=== PATIENT | female | born 1950 | race African-American/Black ===

== ENCOUNTER 2021-10-10 04:46 | Observation (INO) | payer OTHER ==
[2021-10-10 04:54] VITALS: BMI 22.1
[2021-10-10 06:17] LABS: BASO % 0.7 % (0-2.0); EOS % 2.8 % (0-4.5); HEMATOCRIT 38.4 % (32.4-45.2); LYMPH % 42.7 % (8-40); MCH 32.2 pg (25.7-33.7); MCHC 33.7 g/dl (32.0-36.0); MEAN CELL VOLUME 95.6 fl (80-96); MEAN PLT VOLUME 9.9 fl (7.5-11.1); MONO % 15.6 % (3.8-10.2); NEUT % 38.2 % (42.8-82.8); PLATELET COUNT 229 10^3/uL (134-434); RBC 4.02 M/mm3 (3.60-5.2); WHITE BLOOD COUNT 4.2 K/mm3 (4.0-10.0)
[2021-10-10 06:28] LABS: CHLORIDE 98 mmol/L (98-107); SODIUM 133 mmol/L (136-145)
[2021-10-10 06:30] LABS: CALCIUM 9.2 mg/dL (8.5-10.1)
[2021-10-10 06:31] LABS: ANION GAP 8 MMOL/L (8-16); BLOOD UREA NITROGEN 14.6 mg/dL (7-18); CO2 27 mmol/L (21-32); GLUCOSE,RANDOM 69 mg/dL (74-106)
[2021-10-10 06:34] LABS: CREATININE 0.7 mg/dL (0.55-1.3); SGOT/AST 21 U/L (15-37); SGPT/ALT 13 U/L (13-61)
[2021-10-10 06:35] LABS: BILIRUBIN,TOTAL 0.6 mg/dL (0.2-1); TOT PROT 6.9 g/dl (6.4-8.2)
[2021-10-10 06:37] LABS: ALK PHOS 113 U/L (45-117)
[2021-10-10] MEDS ORDERED: ENOXAPARIN NA (PORCINE) 40 MG/0.4 ML DISP.SYRIN SQ ONE (10:19)
[2021-10-10] MEDS ORDERED: LORazepam 0.5 MG TABLET ONE (10:19)
[2021-10-10 10:20] LABS: EPI CELLS 24 /uL (0-25.1); HYALINE CASTS 1 /uL (0-3.1); URINE APPEARANCE CLEAR; URINE BACTERIA 50 /uL (0-1359); URINE BILIRUBIN NEGATIVE (NEGATIVE); URINE COLOR YELLOW; URINE GLUCOSE (UA) NEGATIVE (NEGATIVE); URINE KETONE 2+ (NEGATIVE); URINE LEUK ESTERASE 2+ (NEGATIVE); URINE NITRITE NEGATIVE (NEGATIVE); URINE PROTEIN NEGATIVE (NEGATIVE); URINE RBC 7 /uL (0-23.9); URINE UROBILINOGEN 0.2 mg/dL (0.2-1.0); URINE WBC 11 /uL (0-25.8)
[2021-10-10] MEDS: LORazepam 0.5 MG TABLET PO PRN (10:24)
[2021-10-10] MEDS: ENOXAPARIN NA (PORCINE) 40 MG/0.4 ML DISP.SYRIN SQ SCH (10:24)
[2021-10-10] MEDS ORDERED: oxyCODONE HCL 5 MG TABLET PO ONE (12:17)
[2021-10-10] MEDS ORDERED: ONDANSETRON 4 MG/2 ML VIAL ONE (15:24)
[2021-10-10] MEDS: ONDANSETRON 4 MG/2 ML VIAL IVPUSH PRN (15:28)
[2021-10-10 17:45] LABS: MAGNESIUM 1.8 mg/dL (1.8-2.4)
[2021-10-10 17:48] LABS: PHOSPHOROUS 3.1 mg/dL (2.5-4.9)
[2021-10-10 18:42] LABS: CALCIUM 9.1 mg/dL (8.5-10.1)
[2021-10-10 18:44] LABS: BLOOD UREA NITROGEN 14.2 mg/dL (7-18)
[2021-10-10 18:46] LABS: CREATININE 0.7 mg/dL (0.55-1.3)
[2021-10-11] MEDS: ONDANSETRON 4 MG/2 ML VIAL IVPUSH PRN (00:05)
[2021-10-11] MEDS: LORazepam 0.5 MG TABLET PO PRN ×2 (02:40→13:33)
[2021-10-11] MEDS ORDERED: SODIUM CHLORIDE 1,000 ML IV SCH (08:30)
[2021-10-11 08:52] LABS: BASO % 0.5 % (0-2.0); EOS % 3.2 % (0-4.5); HEMATOCRIT 37.5 % (32.4-45.2); HEMOGLOBIN 12.8 GM/dL (10.7-15.3); LYMPH % 47.4 % (8-40); MCH 32.8 pg (25.7-33.7); MCHC 34.1 g/dl (32.0-36.0); MEAN CELL VOLUME 96.2 fl (80-96); MEAN PLT VOLUME 9.5 fl (7.5-11.1); NEUT % 36.9 % (42.8-82.8); PLATELET COUNT 226 10^3/uL (134-434); RBC 3.89 M/mm3 (3.60-5.2); RDW 12.9 % (11.6-15.6); WHITE BLOOD COUNT 3.6 K/mm3 (4.0-10.0)
[2021-10-11 09:20] LABS: ALBUMIN 3.8 g/dl (3.4-5.0); BLOOD UREA NITROGEN 13.8 mg/dL (7-18); CALCIUM 8.8 mg/dL (8.5-10.1)
[2021-10-11 09:23] LABS: CREATININE 0.8 mg/dL (0.55-1.3)
[2021-10-11 09:24] LABS: TOT PROT 6.6 g/dl (6.4-8.2)
[2021-10-11 09:25] LABS: BILIRUBIN,TOTAL 0.6 mg/dL (0.2-1)
[2021-10-11] MEDS: ENOXAPARIN NA (PORCINE) 40 MG/0.4 ML DISP.SYRIN SQ SCH (11:00)
[2021-10-11] MEDS: oxyCODONE HCL 5 MG TABLET PO PRN (11:10)
[2021-10-11 12:03] LABS: MAGNESIUM 1.9 mg/dL (1.8-2.4)
[2021-10-11 12:07] LABS: PHOSPHOROUS 3.1 mg/dL (2.5-4.9)
[2021-10-11] MEDS ORDERED: LORazepam 0.5 MG TABLET PO ONE (18:56)
[2021-10-12] MEDS: LORazepam 0.5 MG TABLET PO PRN (03:33)
[2021-10-12] MEDS: ONDANSETRON 4 MG/2 ML VIAL IVPUSH PRN (03:34)
[2021-10-12] MEDS: ENOXAPARIN NA (PORCINE) 40 MG/0.4 ML DISP.SYRIN SQ SCH (10:37)
[2021-10-12] MEDS: oxyCODONE HCL 5 MG TABLET PO PRN (10:52)
[2021-10-13] MEDS: LORazepam 0.5 MG TABLET PO PRN (03:59)
[2021-10-13] MEDS: ENOXAPARIN NA (PORCINE) 40 MG/0.4 ML DISP.SYRIN SQ SCH (10:14)
[2021-10-13] MEDS: oxyCODONE HCL 5 MG TABLET PO PRN (10:16)
[2021-10-13] MEDS ORDERED: LORazepam 0.5 MG TABLET PO PRN (23:08)
[2021-10-13] MEDS ORDERED: ONDANSETRON 4 MG/2 ML VIAL IVPUSH PRN (23:08)
[2021-10-14] MEDS: LORazepam 0.5 MG TABLET PO PRN ×2 (04:09→14:01)
[2021-10-14] MEDS: oxyCODONE HCL 5 MG TABLET PO PRN (06:07)
[2021-10-14] MEDS: ENOXAPARIN NA (PORCINE) 40 MG/0.4 ML DISP.SYRIN SQ SCH (10:37)
[2021-10-15] MEDS: oxyCODONE HCL 5 MG TABLET PO PRN ×2 (03:02→15:51)
[2021-10-15] MEDS: LORazepam 0.5 MG TABLET PO PRN (07:52)
[2021-10-15] MEDS: ENOXAPARIN NA (PORCINE) 40 MG/0.4 ML DISP.SYRIN SQ SCH (09:57)
[2021-10-16] MEDS: oxyCODONE HCL 5 MG TABLET PO PRN (04:14)
[2021-10-16] MEDS: ENOXAPARIN NA (PORCINE) 40 MG/0.4 ML DISP.SYRIN SQ SCH (09:31)
[2021-10-16] MEDS: LORazepam 0.5 MG TABLET PO PRN (09:31)
[2021-10-16 15:28] VITALS: BP 153/74; PULSE 88; TEMP 97.5
== END 2021-10-16 16:53 ==
LOC: JER 04:46 → JERBED 07:04 → J6WEST-2 19:08 → J4W 10-11 14:07 → J8W 10-13 23:04
PROVIDERS: ADMIT Internal Medicine; ATTEND Internal Medicine
PROC: 3E023GC Introduction of Other Therapeutic Substance into Muscle, Percutaneous Approach (ICD-10-PCS; principal; 2021-10-10)
PROC: 3E033GC Introduction of Other Therapeutic Substance into Peripheral Vein, Percutaneous Approach (ICD-10-PCS; 2021-10-10)
DX: U07.1 COVID-19 (principal); E22.2 Syndrome of inappropriate secretion of antidiuretic hormone; E87.3 Alkalosis; F41.9 Anxiety disorder, unspecified; G89.29 Other chronic pain; R56.9 Unspecified convulsions; E16.2 Hypoglycemia, unspecified; M54.9 Dorsalgia, unspecified; J93.9 Pneumothorax, unspecified; R00.2 Palpitations; Z88.8 Allergy status to other drugs, medicaments and biological substances; Z29.9 Encounter for prophylactic measures, unspecified
CPT/HCPCS: 36415; 70450-TC; 71045-TC-FY; 80048; 80053; 81003; 82436; 82550; 82570; 82962; 83735; 83930; 83935; 84100; 84300; 84484; 85025; 93005; 93010; 96372; 96374; 97116-GP; 97161-GP; 99285-25; C9803; G0378; U0003; U0005

== ENCOUNTER 2021-11-22 03:51 | Inpatient (IN) | payer OTHER ==
[2021-11-22] MEDS ORDERED: ONDANSETRON 4 MG/2 ML VIAL IVPUSH ONE ×2 (04:08→08:16)
[2021-11-22] MEDS ORDERED: morphine CARPU-JECT 4 MG/1 ML DISP.SYRIN IVPUSH ONE (04:08)
[2021-11-22] MEDS ORDERED: morphine SULFATE 4 MG/ML VIAL ONE (04:29)
[2021-11-22] MEDS ORDERED: ONDANSETRON 4 MG/2 ML VIAL ONE ×2 (04:29→08:21)
[2021-11-22] MEDS ORDERED: SODIUM CHLORIDE 0.9% 500 ML INFUS.BAG IV ONE (05:41)
[2021-11-22 05:50] LABS: CHLORIDE 104 mmol/L (98-107); SODIUM 138 mmol/L (136-145)
[2021-11-22 05:52] LABS: CALCIUM 9.6 mg/dL (8.5-10.1)
[2021-11-22 05:53] LABS: ALBUMIN 4.3 g/dl (3.4-5.0); ANION GAP 8 MMOL/L (8-16); BLOOD UREA NITROGEN 18.1 mg/dL (7-18); CO2 26 mmol/L (21-32); GLUCOSE,RANDOM 85 mg/dL (74-106); MAGNESIUM 1.6 mg/dL (1.8-2.4)
[2021-11-22 05:56] LABS: CREATININE 0.8 mg/dL (0.55-1.3); SGOT/AST 19 U/L (15-37); SGPT/ALT 15 U/L (13-61)
[2021-11-22 05:57] LABS: TOT PROT 7.3 g/dl (6.4-8.2)
[2021-11-22 05:58] LABS: BILIRUBIN,TOTAL 0.6 mg/dL (0.2-1)
[2021-11-22 05:59] LABS: ALK PHOS 108 U/L (45-117)
[2021-11-22 06:18] LABS: BASO % 0.6 % (0-2.0); EOS % 1.1 % (0-4.5); HEMATOCRIT 39.5 % (32.4-45.2); HEMOGLOBIN 13.5 GM/dL (10.7-15.3); LYMPH % 45.5 % (8-40); MCH 33.2 pg (25.7-33.7); MCHC 34.1 g/dl (32.0-36.0); MEAN CELL VOLUME 97.2 fl (80-96); MEAN PLT VOLUME 9.5 fl (7.5-11.1); MONO % 7.2 % (3.8-10.2); NEUT % 45.6 % (42.8-82.8); PLATELET COUNT 324 10^3/uL (134-434); RBC 4.06 M/mm3 (3.60-5.2); RDW 13.5 % (11.6-15.6); WHITE BLOOD COUNT 4.8 K/mm3 (4.0-10.0)
[2021-11-22 06:32] LABS: LIPASE 145 U/L (73-393)
[2021-11-22] MEDS ORDERED: FAMOTIDINE 20 MG/50 ML IVPB 20 MG/50 ML MG IVPB ONE ×2 (06:45→06:54)
[2021-11-22] MEDS ORDERED: morphine CARPU-JECT 2 MG/1 ML DISP.SYRIN IVPUSH ONE (06:45)
[2021-11-22 07:06] LABS: LACTIC ACID 2.5 mmol/L (0.4-2.0)
[2021-11-22 08:25] LABS: URINE APPEARANCE CLEAR; URINE BILIRUBIN NEGATIVE (NEGATIVE); URINE COLOR YELLOW; URINE GLUCOSE (UA) NEGATIVE (NEGATIVE); URINE KETONE TRACE (NEGATIVE); URINE PROTEIN NEGATIVE (NEGATIVE); URINE UROBILINOGEN 0.2 mg/dL (0.2-1.0)
[2021-11-22 08:26] LABS: URINE LEUK ESTERASE NEGATIVE (NEGATIVE); URINE NITRITE NEGATIVE (NEGATIVE)
[2021-11-22] MEDS ORDERED: SODIUM CHLORIDE 1,000 ML IV SCH (09:15)
[2021-11-22] MEDS: LORazepam 0.5 MG TABLET PO PRN (10:13)
[2021-11-22] MEDS ORDERED: LORazepam 0.5 MG TABLET ONE (10:14)
[2021-11-22 10:15] LABS: EPI CELLS 1+ /uL (0-25.1); URINE WBC 0-3 /uL (0-25.8)
[2021-11-22] MEDS ORDERED: MAGNESIUM SULF 50% (8.12 MEQ/2 ML-1 GM VIAL) IVPB ONE (12:02)
[2021-11-22] MEDS ORDERED: MAGNESIUM SULFATE IN WATER 2 GM/50 ML IVPB IVPB ONE (12:52)
[2021-11-22] MEDS: ACETAMINOPHEN 1000 MG/100 ML BAG IVPB PRN ×2 (14:41→22:13)
[2021-11-22] MEDS ORDERED: ACETAMINOPHEN INJECTION 100 ML IVPB ONE (14:45)
[2021-11-22] MEDS ORDERED: ENOXAPARIN NA (PORCINE) 40 MG/0.4 ML DISP.SYRIN SQ SCH ×2 (16:00→22:00)
[2021-11-22 16:32] LABS: INR 0.99 (0.83-1.09); PROTHROMBIN TIME (PATIENT) 11.4 SEC (9.7-13.0)
[2021-11-22 16:35] LABS: ACTIVATED PTT 27.1 SECONDS (25.2-36.5)
[2021-11-22 16:55] LABS: LACTIC ACID 2.7 mmol/L (0.4-2.0)
[2021-11-22] MEDS ORDERED: SODIUM PHOSPHATE - 30 MM in SODIUM CHLORIDE 500 ML IVPB ONE (17:30)
[2021-11-22] MEDS ORDERED: SODIUM CHLORIDE 1,000 ML IV STA (17:37)
[2021-11-22 20:49] VITALS: BMI 23.0
[2021-11-22] MEDS: APIXABAN 5 MG TABLET PO SCH (22:01)
[2021-11-22] MEDS: METOPROLOL TARTRATE 25 MG TABLET (FP) PO SCH (22:01)
[2021-11-23] MEDS: TRIMETHOBENZAMIDE HCL 200MG/2ML INJ IM PRN (02:11)
[2021-11-23] MEDS: LORazepam 0.5 MG TABLET PO PRN (02:50)
[2021-11-23 09:02] LABS: BASO % 0.7 % (0-2.0); EOS % 2.3 % (0-4.5); LYMPH % 47.6 % (8-40); MCH 33.6 pg (25.7-33.7); MCHC 34.2 g/dl (32.0-36.0); MEAN CELL VOLUME 98.3 fl (80-96); MONO % 9.3 % (3.8-10.2); NEUT % 40.1 % (42.8-82.8); PLATELET COUNT 240 10^3/uL (134-434); RBC 3.26 M/mm3 (3.60-5.2); RDW 13.1 % (11.6-15.6); WHITE BLOOD COUNT 3.6 K/mm3 (4.0-10.0)
[2021-11-23] MEDS: METOPROLOL TARTRATE 25 MG TABLET (FP) PO SCH ×3 (09:04→21:46)
[2021-11-23] MEDS: APIXABAN 5 MG TABLET PO SCH ×2 (09:04→21:43)
[2021-11-23 09:23] LABS: BLOOD UREA NITROGEN 8.6 mg/dL (7-18); MAGNESIUM 2.1 mg/dL (1.8-2.4)
[2021-11-23 09:24] LABS: CHOLESTEROL 144 mg/dL (50-200); TRIGLYCERIDES 57 mg/dL (0-150)
[2021-11-23 09:25] LABS: LDL CHOLESTEROL (ONLY SJRH) 65 mg/dL (5-100)
[2021-11-23 09:27] LABS: HDL CHOLESTEROL 68 mg/dL (40-60)
[2021-11-23 09:29] LABS: CREATININE 0.7 mg/dL (0.55-1.3)
[2021-11-23 09:37] LABS: ALBUMIN 3.1 g/dl (3.4-5.0); CALCIUM 7.6 mg/dL (8.5-10.1); TOT PROT 5.2 g/dl (6.4-8.2)
[2021-11-23] MEDS: SIMETHICONE 80 MG TAB.CHEW (FP) PO SCH ×3 (13:10→21:43)
[2021-11-23] MEDS ORDERED: LORazepam 0.5 MG TABLET PO SCH (22:00)
[2021-11-24] MEDS: LORazepam 0.5 MG TABLET PO PRN ×2 (01:17→13:32)
[2021-11-24] MEDS: ACETAMINOPHEN 1000 MG/100 ML BAG IVPB PRN ×3 (02:20→14:43)
[2021-11-24 09:06] LABS: BASO % 0.8 % (0-2.0); EOS % 3.1 % (0-4.5); HEMATOCRIT 32.5 % (32.4-45.2); HEMOGLOBIN 11.3 GM/dL (10.7-15.3); LYMPH % 47.2 % (8-40); MCHC 34.8 g/dl (32.0-36.0); MEAN CELL VOLUME 97.9 fl (80-96); MEAN PLT VOLUME 9.6 fl (7.5-11.1); MONO % 7.3 % (3.8-10.2); NEUT % 41.6 % (42.8-82.8); PLATELET COUNT 237 10^3/uL (134-434); RBC 3.32 M/mm3 (3.60-5.2); RDW 12.9 % (11.6-15.6); WHITE BLOOD COUNT 4.3 K/mm3 (4.0-10.0)
[2021-11-24 09:15] LABS: ALBUMIN 3.2 g/dl (3.4-5.0); BLOOD UREA NITROGEN 6.8 mg/dL (7-18); CALCIUM 7.8 mg/dL (8.5-10.1)
[2021-11-24] MEDS ORDERED: DEXTROSE 5%-0.45% SALINE 1,000 ML IV SCH ×2 (09:15→14:02)
[2021-11-24 09:18] LABS: CREATININE 0.7 mg/dL (0.55-1.3); PHOSPHOROUS 2.6 mg/dL (2.5-4.9)
[2021-11-24] MEDS: APIXABAN 5 MG TABLET PO SCH ×2 (09:18→21:19)
[2021-11-24] MEDS: METOPROLOL TARTRATE 25 MG TABLET (FP) PO SCH ×3 (09:18→21:19)
[2021-11-24] MEDS: SIMETHICONE 80 MG TAB.CHEW (FP) PO SCH ×4 (09:18→21:19)
[2021-11-24 09:19] LABS: TOT PROT 5.4 g/dl (6.4-8.2)
[2021-11-24 09:20] LABS: BILIRUBIN,TOTAL 0.8 mg/dL (0.2-1)
[2021-11-24] MEDS ORDERED: LORazepam 0.5 MG TABLET PO PRN ×2 (13:49→13:50)
[2021-11-24] MEDS: FAMOTIDINE 20 MG/50 ML IVPB 20 MG/50 ML MG IVPB SCH ×2 (14:07→21:19)
[2021-11-24] MEDS: POLYETHYLENE GLYCOL (HEALTHYLAX) 3350 17 GM PACKET PO SCH (21:21)
[2021-11-25] MEDS: LORazepam 0.5 MG TABLET PO PRN ×2 (01:39→13:49)
[2021-11-25] MEDS: TRIMETHOBENZAMIDE HCL 200MG/2ML INJ IM PRN (03:57)
[2021-11-25] MEDS ORDERED: ACETAMINOPHEN 1000 MG/100 ML BAG IVPB ONE (04:59)
[2021-11-25 09:02] LABS: BASO % 0.3 % (0-2.0); EOS % 1.2 % (0-4.5); HEMATOCRIT 35.3 % (32.4-45.2); HEMOGLOBIN 12.3 GM/dL (10.7-15.3); LYMPH % 21.9 % (8-40); MCH 33.9 pg (25.7-33.7); MCHC 34.8 g/dl (32.0-36.0); MEAN CELL VOLUME 97.2 fl (80-96); MEAN PLT VOLUME 9.5 fl (7.5-11.1); MONO % 6.1 % (3.8-10.2); NEUT % 70.5 % (42.8-82.8); PLATELET COUNT 244 10^3/uL (134-434); RBC 3.64 M/mm3 (3.60-5.2); RDW 12.7 % (11.6-15.6); WHITE BLOOD COUNT 8.1 K/mm3 (4.0-10.0)
[2021-11-25 09:29] LABS: CHLORIDE 98 mmol/L (98-107); SODIUM 130 mmol/L (136-145)
[2021-11-25 09:31] LABS: CALCIUM 8.2 mg/dL (8.5-10.1); GLUCOSE,RANDOM 81 mg/dL (74-106)
[2021-11-25 09:32] LABS: ALBUMIN 3.6 g/dl (3.4-5.0); ANION GAP 11 MMOL/L (8-16); BLOOD UREA NITROGEN 7.4 mg/dL (7-18); CO2 21 mmol/L (21-32); MAGNESIUM 1.8 mg/dL (1.8-2.4)
[2021-11-25 09:35] LABS: CREATININE 0.8 mg/dL (0.55-1.3); LIPASE 38 U/L (73-393); PHOSPHOROUS 2.2 mg/dL (2.5-4.9); SGOT/AST 32 U/L (15-37); SGPT/ALT 15 U/L (13-61)
[2021-11-25 09:36] LABS: AMYLASE 26 U/L (25-115); LDH 162 U/L (84-246); TOT PROT 5.9 g/dl (6.4-8.2)
[2021-11-25 09:38] LABS: ALK PHOS 75 U/L (45-117)
[2021-11-25] MEDS: FAMOTIDINE 20 MG/50 ML IVPB 20 MG/50 ML MG IVPB SCH ×2 (10:48→21:36)
[2021-11-25] MEDS: SIMETHICONE 80 MG TAB.CHEW (FP) PO SCH (10:48)
[2021-11-25] MEDS: APIXABAN 5 MG TABLET PO SCH ×2 (10:49→21:36)
[2021-11-25] MEDS: POLYETHYLENE GLYCOL (HEALTHYLAX) 3350 17 GM PACKET PO SCH ×2 (10:49→21:37)
[2021-11-25] MEDS: METOPROLOL TARTRATE 25 MG TABLET (FP) PO SCH ×3 (11:13→21:38)
[2021-11-25] MEDS ORDERED: NAPH,MB-DB/K PH,MBDB POWDER PACKET PO ONE (12:09)
[2021-11-25] MEDS ORDERED: METOCLOPRAMIDE HCL INJECTION 10 MG/2 ML VIAL IVPUSH ONE (15:18)
[2021-11-26] MEDS: LORazepam 0.5 MG TABLET PO PRN ×2 (04:15→14:56)
[2021-11-26] MEDS: APIXABAN 5 MG TABLET PO SCH ×2 (09:26→21:29)
[2021-11-26] MEDS: METOPROLOL TARTRATE 25 MG TABLET (FP) PO SCH ×2 (09:26→21:29)
[2021-11-26] MEDS: POLYETHYLENE GLYCOL (HEALTHYLAX) 3350 17 GM PACKET PO SCH ×2 (09:26→21:29)
[2021-11-26] MEDS: FAMOTIDINE 20 MG/50 ML IVPB 20 MG/50 ML MG IVPB SCH ×2 (09:26→21:29)
[2021-11-26 10:12] LABS: CALCIUM 8.7 mg/dL (8.5-10.1)
[2021-11-26 10:16] LABS: CREATININE 0.7 mg/dL (0.55-1.3); PHOSPHOROUS 2.3 mg/dL (2.5-4.9)
[2021-11-26] MEDS ORDERED: SODIUM PHOSPHATE - 30 MM in SODIUM CHLORIDE 500 ML IVPB ONE (10:57)
[2021-11-26 12:51] LABS: BLOOD UREA NITROGEN 8.7 mg/dL (7-18); CALCIUM 8.5 mg/dL (8.5-10.1)
[2021-11-26 12:52] LABS: ALBUMIN 3.7 g/dl (3.4-5.0)
[2021-11-26 12:55] LABS: CREATININE 0.7 mg/dL (0.55-1.3)
[2021-11-26 12:56] LABS: BILIRUBIN,TOTAL 0.8 mg/dL (0.2-1); TOT PROT 6.4 g/dl (6.4-8.2)
[2021-11-27] MEDS: LORazepam 0.5 MG TABLET PO PRN ×2 (02:07→09:58)
[2021-11-27] MEDS ORDERED: NAPH,MB-DB/K PH,MBDB POWDER PACKET PO ONE (08:18)
[2021-11-27 09:14] LABS: CALCIUM 8.3 mg/dL (8.5-10.1)
[2021-11-27 09:15] LABS: ALBUMIN 3.5 g/dl (3.4-5.0); BLOOD UREA NITROGEN 7.1 mg/dL (7-18)
[2021-11-27 09:16] LABS: CREATININE 0.6 mg/dL (0.55-1.3)
[2021-11-27 09:18] LABS: PHOSPHOROUS 2.8 mg/dL (2.5-4.9)
[2021-11-27 09:20] LABS: BILIRUBIN,TOTAL 0.8 mg/dL (0.2-1)
[2021-11-27 09:28] LABS: BASO % 0.6 % (0-2.0); EOS % 2.4 % (0-4.5); HEMOGLOBIN 12.3 GM/dL (10.7-15.3); LYMPH % 36.6 % (8-40); MCH 34.6 pg (25.7-33.7); MCHC 36.4 g/dl (32.0-36.0); MEAN CELL VOLUME 95.2 fl (80-96); MEAN PLT VOLUME 9.1 fl (7.5-11.1); MONO % 8.9 % (3.8-10.2); NEUT % 51.5 % (42.8-82.8); PLATELET COUNT 233 10^3/uL (134-434); RBC 3.57 M/mm3 (3.60-5.2); RDW 13.1 % (11.6-15.6); WHITE BLOOD COUNT 5.5 K/mm3 (4.0-10.0)
[2021-11-27] MEDS: FAMOTIDINE 20 MG/50 ML IVPB 20 MG/50 ML MG IVPB SCH (09:52)
[2021-11-27] MEDS: POLYETHYLENE GLYCOL (HEALTHYLAX) 3350 17 GM PACKET PO SCH (09:52)
[2021-11-27] MEDS: APIXABAN 5 MG TABLET PO SCH (09:52)
[2021-11-27] MEDS: METOPROLOL TARTRATE 25 MG TABLET (FP) PO SCH (09:52)
[2021-11-27 10:17] VITALS: BP 144/68; PULSE 60; TEMP 98.1
== END 2021-11-27 14:09 | disposition home or self-care (01) | DRG 389 ==
LOC: JER 03:51 → UNDOADMOB 08:12 → JERBED 08:12 → INTOOBSV 08:12 → JERBED 08:12 → UNDOADMOB 08:57 → JERBED 14:41 → INTOOBSV 14:50 → OBSVTOIN 14:50 → J6S 20:01 → OBSVTOIN 11-24 14:41
PROVIDERS: ADMIT Internal Medicine
DX: K56.7 Ileus, unspecified (principal); N39.0 Urinary tract infection, site not specified; E22.2 Syndrome of inappropriate secretion of antidiuretic hormone; E87.2 Acidosis; K57.30 Diverticulosis of large intestine without perforation or abscess without bleeding; I48.0 Paroxysmal atrial fibrillation; I51.7 Cardiomegaly; F41.9 Anxiety disorder, unspecified; K59.00 Constipation, unspecified; E83.42 Hypomagnesemia
CPT/HCPCS: 36415; 71045-TC-FY; 74174-TC; 76705-TC; 78226-TC; 80048; 80053; 80061; 81003; 82150; 83036; 83605; 83615; 83690; 83735; 84100; 84439; 84443; 84484; 85025; 85610; 85651; 85730; 86140; 86850; 86900; 86901; 87086; 87186; 93005; 93010; 93306-TC; 99285-25; A9537; C9803; G0378; U0003; U0005

== ENCOUNTER 2021-11-29 02:50 | Observation (INO) | payer OTHER ==
[2021-11-29 03:20] VITALS: BMI 20.7
[2021-11-29] MEDS ORDERED: SODIUM CHLORIDE 0.9% 500 ML INFUS.BAG IV ONE (03:55)
[2021-11-29] MEDS ORDERED: FAMOTIDINE 20 MG/50 ML IVPB 20 MG/50 ML MG IVPB ONE ×2 (03:55→04:17)
[2021-11-29] MEDS ORDERED: MAG HYDROX/AL HYDROX/SIMETH -MYLANTA- ORAL SUSPENSION PO ONE (03:55)
[2021-11-29] MEDS ORDERED: ONDANSETRON *ODT* 4 MG TABLET SL ONE (03:55)
[2021-11-29] MEDS ORDERED: MAG HYDROX/AL HYDROX/SIMETH 30 ML UNIT-DOSE CUP ONE (04:17)
[2021-11-29] MEDS ORDERED: ONDANSETRON *ODT* 4 MG TABLET ONE (04:17)
[2021-11-29 04:23] LABS: BASO % 0.6 % (0-2.0); EOS % 2.9 % (0-4.5); HEMATOCRIT 35.5 % (32.4-45.2); HEMOGLOBIN 12.8 GM/dL (10.7-15.3); LYMPH % 37.5 % (8-40); MCH 33.9 pg (25.7-33.7); MCHC 35.9 g/dl (32.0-36.0); MEAN CELL VOLUME 94.2 fl (80-96); MEAN PLT VOLUME 8.7 fl (7.5-11.1); MONO % 11.8 % (3.8-10.2); NEUT % 47.2 % (42.8-82.8); PLATELET COUNT 254 10^3/uL (134-434); RBC 3.77 M/mm3 (3.60-5.2); WHITE BLOOD COUNT 4.7 K/mm3 (4.0-10.0)
[2021-11-29 04:43] LABS: CALCIUM 8.7 mg/dL (8.5-10.1); MAGNESIUM 1.9 mg/dL (1.8-2.4)
[2021-11-29 04:46] LABS: CREATININE 0.7 mg/dL (0.55-1.3); PHOSPHOROUS 2.5 mg/dL (2.5-4.9)
[2021-11-29 04:48] LABS: BILIRUBIN,TOTAL 0.7 mg/dL (0.2-1); TOT PROT 6.8 g/dl (6.4-8.2)
[2021-11-29] MEDS ORDERED: LORazepam 2 MG TABLET PO ONE ×2 (06:47→06:54)
[2021-11-29] MEDS ORDERED: LORazepam 0.5 MG TABLET ONE (06:57)
[2021-11-29] MEDS ORDERED: CEPHALEXIN MONOHYDRATE 500 MG CAPSULE (UD) PO SCH (10:00)
[2021-11-29 10:54] LABS: BLOOD UREA NITROGEN 9.2 mg/dL (7-18); CALCIUM 8.3 mg/dL (8.5-10.1)
[2021-11-29 10:57] LABS: CREATININE 0.6 mg/dL (0.55-1.3)
[2021-11-29] MEDS ORDERED: METOPROLOL TARTRATE 25 MG TABLET (FP) ONE (11:31)
[2021-11-29] MEDS ORDERED: APIXABAN 5 MG TABLET ONE (11:31)
[2021-11-29] MEDS ORDERED: CEPHALEXIN MONOHYDRATE 500 MG CAPSULE (UD) ONE (11:32)
[2021-11-29 11:36] LABS: EPI CELLS 12 /uL (0-25.1); HYALINE CASTS 1 /uL (0-3.1); URINE APPEARANCE CLEAR; URINE BACTERIA 648 /uL (0-1359); URINE BILIRUBIN NEGATIVE (NEGATIVE); URINE COLOR YELLOW; URINE GLUCOSE (UA) NEGATIVE (NEGATIVE); URINE KETONE TRACE (NEGATIVE); URINE LEUK ESTERASE 1+ (NEGATIVE); URINE NITRITE NEGATIVE (NEGATIVE); URINE PROTEIN NEGATIVE (NEGATIVE); URINE RBC 7 /uL (0-23.9); URINE UROBILINOGEN 0.2 mg/dL (0.2-1.0); URINE WBC 57 /uL (0-25.8)
[2021-11-29] MEDS: APIXABAN 5 MG TABLET PO SCH ×2 (11:36→22:37)
[2021-11-29] MEDS: METOPROLOL TARTRATE 25 MG TABLET (FP) PO SCH ×2 (11:36→22:37)
[2021-11-29] MEDS: CEPHALEXIN MONOHYDRATE 500 MG CAPSULE (UD) PO SCH ×2 (11:37→22:37)
[2021-11-29 11:41] LABS: URINE CRYSTALS NON SEEN /hpf
[2021-11-29] MEDS ORDERED: SODIUM CHLORIDE 1 GM TABLET PO SCH (13:30)
[2021-11-29] MEDS: SODIUM CHLORIDE 1 GM TABLET PO SCH ×3 (15:31→22:37)
[2021-11-29 17:28] LABS: CALCIUM 8.2 mg/dL (8.5-10.1)
[2021-11-29 17:29] LABS: BLOOD UREA NITROGEN 9.5 mg/dL (7-18)
[2021-11-29 17:32] LABS: CREATININE 0.6 mg/dL (0.55-1.3)
[2021-11-29 21:38] LABS: CALCIUM 8.2 mg/dL (8.5-10.1)
[2021-11-29 21:39] LABS: BLOOD UREA NITROGEN 9.5 mg/dL (7-18)
[2021-11-29 21:42] LABS: CREATININE 0.8 mg/dL (0.55-1.3)
[2021-11-30] MEDS: LORazepam 0.5 MG TABLET PO PRN (02:49)
[2021-11-30] MEDS: SODIUM CHLORIDE 1 GM TABLET PO SCH ×3 (06:20→21:43)
[2021-11-30 07:30] LABS: CALCIUM 8.5 mg/dL (8.5-10.1)
[2021-11-30 07:31] LABS: ALBUMIN 3.3 g/dl (3.4-5.0); BLOOD UREA NITROGEN 7.2 mg/dL (7-18); MAGNESIUM 1.9 mg/dL (1.8-2.4)
[2021-11-30 07:33] LABS: HEMATOCRIT 32.5 % (32.4-45.2); HEMOGLOBIN 11.9 GM/dL (10.7-15.3); MCH 34.5 pg (25.7-33.7); MCHC 36.6 g/dl (32.0-36.0); MEAN CELL VOLUME 94.3 fl (80-96); MEAN PLT VOLUME 9.3 fl (7.5-11.1); PLATELET COUNT 215 10^3/uL (134-434); RBC 3.45 M/mm3 (3.60-5.2); RDW 12.9 % (11.6-15.6); WHITE BLOOD COUNT 3.9 K/mm3 (4.0-10.0)
[2021-11-30 07:34] LABS: CREATININE 0.6 mg/dL (0.55-1.3); PHOSPHOROUS 2.5 mg/dL (2.5-4.9)
[2021-11-30 07:35] LABS: BILIRUBIN,TOTAL 0.8 mg/dL (0.2-1)
[2021-11-30 07:36] LABS: TOT PROT 5.6 g/dl (6.4-8.2)
[2021-11-30] MEDS: CEPHALEXIN MONOHYDRATE 500 MG CAPSULE (UD) PO SCH ×2 (09:01→21:43)
[2021-11-30] MEDS: METOPROLOL TARTRATE 25 MG TABLET (FP) PO SCH ×3 (09:01→21:43)
[2021-11-30] MEDS: APIXABAN 5 MG TABLET PO SCH ×2 (09:01→21:43)
[2021-12-01] MEDS: LORazepam 0.5 MG TABLET PO PRN ×2 (04:35→17:04)
[2021-12-01] MEDS: SODIUM CHLORIDE 1 GM TABLET PO SCH ×3 (05:32→21:45)
[2021-12-01 08:51] LABS: BASO % 0.9 % (0-2.0); HEMATOCRIT 32.5 % (32.4-45.2); HEMOGLOBIN 11.7 GM/dL (10.7-15.3); LYMPH % 47.5 % (8-40); MCH 34.3 pg (25.7-33.7); MCHC 35.9 g/dl (32.0-36.0); MEAN CELL VOLUME 95.3 fl (80-96); MEAN PLT VOLUME 9.2 fl (7.5-11.1); MONO % 12.4 % (3.8-10.2); NEUT % 37.2 % (42.8-82.8); PLATELET COUNT 217 10^3/uL (134-434); RBC 3.41 M/mm3 (3.60-5.2); WHITE BLOOD COUNT 3.8 K/mm3 (4.0-10.0)
[2021-12-01 09:21] LABS: CALCIUM 8.5 mg/dL (8.5-10.1)
[2021-12-01 09:22] LABS: ALBUMIN 3.2 g/dl (3.4-5.0); BLOOD UREA NITROGEN 7.8 mg/dL (7-18)
[2021-12-01 09:25] LABS: CREATININE 0.7 mg/dL (0.55-1.3)
[2021-12-01 09:27] LABS: BILIRUBIN,TOTAL 0.4 mg/dL (0.2-1); TOT PROT 5.6 g/dl (6.4-8.2)
[2021-12-01] MEDS: APIXABAN 5 MG TABLET PO SCH ×2 (10:36→21:44)
[2021-12-01] MEDS: METOPROLOL TARTRATE 25 MG TABLET (FP) PO SCH ×2 (10:36→21:45)
[2021-12-01] MEDS: CEPHALEXIN MONOHYDRATE 500 MG CAPSULE (UD) PO SCH ×2 (10:36→21:44)
[2021-12-02] MEDS: LORazepam 0.5 MG TABLET PO PRN (05:10)
[2021-12-02] MEDS: SODIUM CHLORIDE 1 GM TABLET PO SCH ×3 (05:10→21:26)
[2021-12-02] MEDS: CEPHALEXIN MONOHYDRATE 500 MG CAPSULE (UD) PO SCH ×2 (09:35→21:26)
[2021-12-02] MEDS: APIXABAN 5 MG TABLET PO SCH ×2 (09:35→21:26)
[2021-12-02] MEDS: METOPROLOL TARTRATE 25 MG TABLET (FP) PO SCH ×2 (09:35→21:26)
[2021-12-02] MEDS ORDERED: traMADol HCL 50 MG TABLET PO ONE (12:34)
[2021-12-02] MEDS ORDERED: LORazepam 2 MG TABLET PO ONE (14:32)
[2021-12-02] MEDS ORDERED: LORazepam 0.5 MG TABLET PO PRN (14:41)
[2021-12-02 16:23] LABS: CALCIUM 8.6 mg/dL (8.5-10.1)
[2021-12-02 16:27] LABS: CREATININE 0.7 mg/dL (0.55-1.3)
[2021-12-03] MEDS: SODIUM CHLORIDE 1 GM TABLET PO SCH ×2 (05:58→14:33)
[2021-12-03] MEDS: METOPROLOL TARTRATE 25 MG TABLET (FP) PO SCH ×2 (09:09→09:12)
[2021-12-03] MEDS: CEPHALEXIN MONOHYDRATE 500 MG CAPSULE (UD) PO SCH (09:09)
[2021-12-03] MEDS: APIXABAN 5 MG TABLET PO SCH (09:10)
[2021-12-03 14:18] VITALS: BP 129/59; PULSE 61; TEMP 97.8
[2021-12-03] MEDS ORDERED: LORazepam 0.5 MG TABLET PO ONE (14:56)
== END 2021-12-03 16:47 | disposition short-term general hospital (02) ==
LOC: JER 02:50 → UNDOADMOB 05:53 → INTOOBSV 05:53 → JERBED 05:53 → J7W 12:32
PROVIDERS: ADMIT Internal Medicine
PROC: 3E033GC Introduction of Other Therapeutic Substance into Peripheral Vein, Percutaneous Approach (ICD-10-PCS; principal; 2021-11-29)
PROC: 3E0337Z Introduction of Electrolytic and Water Balance Substance into Peripheral Vein, Percutaneous Approach (ICD-10-PCS; 2021-11-29)
DX: E22.2 Syndrome of inappropriate secretion of antidiuretic hormone (principal); I48.0 Paroxysmal atrial fibrillation; R19.7 Diarrhea, unspecified; N39.0 Urinary tract infection, site not specified
CPT/HCPCS: 36415; 80048; 80053; 81003; 82436; 82533; 83735; 83930; 83935; 84100; 84133; 84300; 84439; 84443; 85025; 85027; 87045; 87046; 87086; 87177; 87186; 87209; 96365; 99285-25; C9803; G0378; Q0162; U0003; U0005

== ENCOUNTER 2022-01-16 03:57 | Observation (INO) | payer OTHER ==
[2022-01-16] MEDS ORDERED: SODIUM CHLORIDE 0.9% 500 ML INFUS.BAG IV ONE ×2 (04:06→04:15)
[2022-01-16] MEDS ORDERED: FAMOTIDINE 20 MG/50 ML IVPB 20 MG/50 ML MG IVPB ONE (04:06)
[2022-01-16] MEDS ORDERED: ONDANSETRON 4 MG/2 ML VIAL IVPUSH ONE (04:06)
[2022-01-16] MEDS ORDERED: ACETAMINOPHEN 1000 MG/100 ML BAG IVPB ONE (04:14)
[2022-01-16] MEDS ORDERED: ACETAMINOPHEN INJECTION 100 ML IVPB ONE (04:18)
[2022-01-16] MEDS ORDERED: ONDANSETRON 4 MG/2 ML VIAL ONE (04:18)
[2022-01-16] MEDS ORDERED: FAMOTIDINE 10 MG/ML VIAL IVPB ONE (04:19)
[2022-01-16 04:58] LABS: BASO % 1.3 % (0-2.0); EOS % 3.1 % (0-4.5); HEMATOCRIT 36.9 % (32.4-45.2); LYMPH % 37.9 % (8-40); MCH 34.5 pg (25.7-33.7); MCHC 35.1 g/dl (32.0-36.0); MEAN CELL VOLUME 98.1 fl (80-96); MEAN PLT VOLUME 8.6 fl (7.5-11.1); MONO % 8.9 % (3.8-10.2); NEUT % 48.8 % (42.8-82.8); PLATELET COUNT 249 10^3/uL (134-434); RBC 3.77 M/mm3 (3.60-5.2); RDW 13.1 % (11.6-15.6); WHITE BLOOD COUNT 5.1 K/mm3 (4.0-10.0)
[2022-01-16 05:04] LABS: INR 1.01 (0.83-1.09); PROTHROMBIN TIME (PATIENT) 11.6 SEC (9.7-13.0)
[2022-01-16 05:06] LABS: ACTIVATED PTT 29.8 SECONDS (25.2-36.5)
[2022-01-16 05:20] LABS: ALBUMIN 3.8 g/dl (3.4-5.0); CALCIUM 8.7 mg/dL (8.5-10.1)
[2022-01-16 05:21] LABS: BLOOD UREA NITROGEN 19.6 mg/dL (7-18); MAGNESIUM 1.8 mg/dL (1.8-2.4)
[2022-01-16 05:23] LABS: CREATININE 0.8 mg/dL (0.55-1.3)
[2022-01-16 05:25] LABS: BILIRUBIN,TOTAL 0.6 mg/dL (0.2-1); TOT PROT 6.9 g/dl (6.4-8.2)
[2022-01-16] MEDS ORDERED: morphine CARPU-JECT 2 MG/1 ML DISP.SYRIN IVPUSH ONE (05:56)
[2022-01-16 07:54] LABS: EPI CELLS 8 /uL (0-25.1); HYALINE CASTS 0 /uL (0-3.1); PH,URINE 7.5 (5.0-8.0); URINE APPEARANCE CLEAR; URINE BACTERIA 41 /uL (0-1359); URINE BILIRUBIN NEGATIVE (NEGATIVE); URINE COLOR YELLOW; URINE GLUCOSE (UA) NEGATIVE (NEGATIVE); URINE KETONE NEGATIVE (NEGATIVE); URINE LEUK ESTERASE NEGATIVE (NEGATIVE); URINE NITRITE NEGATIVE (NEGATIVE); URINE PROTEIN NEGATIVE (NEGATIVE); URINE RBC 40 /uL (0-23.9); URINE UROBILINOGEN 0.2 mg/dL (0.2-1.0); URINE WBC 6 /uL (0-25.8)
[2022-01-16] MEDS ORDERED: LORazepam 2 MG TABLET PO ONE (09:24)
[2022-01-16] MEDS ORDERED: LORazepam 0.5 MG TABLET ONE (09:29)
[2022-01-16] MEDS ORDERED: CIPROFLOXACIN 400 MG/D5W 400 MG/200 ML IVPB IVPB ONE (10:05)
[2022-01-16] MEDS ORDERED: ACETAMINOPHEN 1000 MG/100 ML BAG IVPB PRN (11:30)
[2022-01-16] MEDS ORDERED: morphine SULFATE 4 MG/ML VIAL IVPUSH PRN (11:30)
[2022-01-16] MEDS: SODIUM CHLORIDE 1,000 ML IV SCH (12:30)
[2022-01-16] MEDS ORDERED: CEFTRIAXONE 1 GM/50 ML BAG ONE (15:06)
[2022-01-16] MEDS: SODIUM CHLORIDE 1 GM TABLET PO SCH (15:19)
[2022-01-16] MEDS: CEFTRIAXONE 1 GM in DEXTROSE 5%-WATER - 50 ML IVPB SCH (15:19)
[2022-01-16 20:44] VITALS: BMI 21.7
[2022-01-17] MEDS: SODIUM CHLORIDE 1 GM TABLET PO SCH ×4 (00:07→21:51)
[2022-01-17] MEDS: ONDANSETRON 4 MG/2 ML VIAL IVPUSH PRN ×2 (03:57→09:39)
[2022-01-17 08:58] LABS: HEMOGLOBIN 11.8 GM/dL (10.7-15.3); MCH 34.6 pg (25.7-33.7); MCHC 34.7 g/dl (32.0-36.0); MEAN CELL VOLUME 99.8 fl (80-96); PLATELET COUNT 225 10^3/uL (134-434); RBC 3.41 M/mm3 (3.60-5.2); RDW 13.1 % (11.6-15.6); WHITE BLOOD COUNT 4.2 K/mm3 (4.0-10.0)
[2022-01-17] MEDS ORDERED: cefTRIAXone SODIUM 1 GM VIAL ONE (09:27)
[2022-01-17] MEDS ORDERED: DEXTROSE 5%-WATER - 50 ML IVPB ONE (09:27)
[2022-01-17 09:32] LABS: BLOOD UREA NITROGEN 8.9 mg/dL (7-18)
[2022-01-17 09:33] LABS: ALBUMIN 3.4 g/dl (3.4-5.0); CALCIUM 8.3 mg/dL (8.5-10.1)
[2022-01-17 09:35] LABS: CREATININE 0.7 mg/dL (0.55-1.3)
[2022-01-17 09:37] LABS: TOT PROT 5.9 g/dl (6.4-8.2)
[2022-01-17] MEDS: CEFTRIAXONE 1 GM in DEXTROSE 5%-WATER - 50 ML IVPB SCH (09:38)
[2022-01-17] MEDS: ENOXAPARIN NA (PORCINE) 40 MG/0.4 ML DISP.SYRIN SQ SCH (09:39)
[2022-01-17] MEDS ORDERED: CEFTRIAXONE 1 GM in DEXTROSE 5%-WATER - 50 ML IVPB SCH (10:00)
[2022-01-17] MEDS ORDERED: ACETAMINOPHEN 650 MG/20.3 ML ORAL SOLUTION (CUPS) PO PRN (10:45)
[2022-01-17] MEDS: SODIUM CHLORIDE 1,000 ML IV SCH (14:47)
[2022-01-17] MEDS: LORazepam 0.5 MG TABLET PO PRN (21:51)
[2022-01-18] MEDS: SODIUM CHLORIDE 1 GM TABLET PO SCH ×3 (06:10→21:35)
[2022-01-18] MEDS: ONDANSETRON 4 MG/2 ML VIAL IVPUSH PRN (06:10)
[2022-01-18] MEDS: ENOXAPARIN NA (PORCINE) 40 MG/0.4 ML DISP.SYRIN SQ SCH (10:30)
[2022-01-18] MEDS: LORazepam 0.5 MG TABLET PO PRN (10:30)
[2022-01-18] MEDS: AMOX TR/POT CLAV 875MG/125MG TABLETS (FP) PO SCH ×3 (10:30→17:32)
[2022-01-19] MEDS: SODIUM CHLORIDE 1 GM TABLET PO SCH ×3 (06:07→21:23)
[2022-01-19] MEDS: ENOXAPARIN NA (PORCINE) 40 MG/0.4 ML DISP.SYRIN SQ SCH (09:03)
[2022-01-19] MEDS: AMOX TR/POT CLAV 875MG/125MG TABLETS (FP) PO SCH ×3 (09:04→17:44)
[2022-01-19] MEDS: LORazepam 0.5 MG TABLET PO PRN ×2 (09:08→21:23)
[2022-01-20] MEDS: SODIUM CHLORIDE 1 GM TABLET PO SCH ×2 (05:57→14:23)
[2022-01-20 06:53] VITALS: BP 128/72; PULSE 58; TEMP 97.8
[2022-01-20 09:54] LABS: BASO % 0.6 % (0-2.0); EOS % 6.4 % (0-4.5); HEMATOCRIT 36.3 % (32.4-45.2); HEMOGLOBIN 12.3 GM/dL (10.7-15.3); LYMPH % 37.4 % (8-40); MCH 33.9 pg (25.7-33.7); MCHC 33.9 g/dl (32.0-36.0); MEAN PLT VOLUME 9.6 fl (7.5-11.1); NEUT % 47.6 % (42.8-82.8); PLATELET COUNT 210 10^3/uL (134-434); RBC 3.63 M/mm3 (3.60-5.2); RDW 12.9 % (11.6-15.6); WHITE BLOOD COUNT 5.2 K/mm3 (4.0-10.0)
[2022-01-20] MEDS: ENOXAPARIN NA (PORCINE) 40 MG/0.4 ML DISP.SYRIN SQ SCH (11:26)
[2022-01-20] MEDS: AMOX TR/POT CLAV 875MG/125MG TABLETS (FP) PO SCH ×2 (11:26→14:22)
[2022-01-20] MEDS: LORazepam 0.5 MG TABLET PO PRN (11:35)
[2022-01-20 12:37] LABS: BLOOD UREA NITROGEN 11.4 mg/dL (7-18)
[2022-01-20 12:41] LABS: CREATININE 0.8 mg/dL (0.55-1.3)
== END 2022-01-20 15:24 | disposition home or self-care (01) ==
LOC: JER 03:57 → INTOOBSV 10:39 → UNDOADMOB 10:39 → JERBED 10:39 → J8W 19:10
PROVIDERS: ADMIT Internal Medicine; ATTEND Internal Medicine
PROC: 3E03329 Introduction of Other Anti-infective into Peripheral Vein, Percutaneous Approach (ICD-10-PCS; principal; 2022-01-16)
PROC: 3E033NZ Introduction of Analgesics, Hypnotics, Sedatives into Peripheral Vein, Percutaneous Approach (ICD-10-PCS; 2022-01-16)
PROC: 3E023GC Introduction of Other Therapeutic Substance into Muscle, Percutaneous Approach (ICD-10-PCS; 2022-01-16)
PROC: 3E0337Z Introduction of Electrolytic and Water Balance Substance into Peripheral Vein, Percutaneous Approach (ICD-10-PCS; 2022-01-16)
DX: K57.92 Diverticulitis of intestine, part unspecified, without perforation or abscess without bleeding (principal); I48.0 Paroxysmal atrial fibrillation; E22.2 Syndrome of inappropriate secretion of antidiuretic hormone; F41.9 Anxiety disorder, unspecified; Z29.8 Encounter for other specified prophylactic measures; Z88.8 Allergy status to other drugs, medicaments and biological substances
CPT/HCPCS: 36415; 71045-TC-FY; 74177-TC; 80048; 80053; 81003; 83605; 83690; 83735; 84484; 85025; 85027; 85610; 85730; 87086; 93005; 93010; 99285-25; C9803-CS; G0378; U0003; U0005

== ENCOUNTER 2022-02-09 10:58 | Emergency (ER) | payer OTHER ==
[2022-02-09 11:18] VITALS: TEMP 98.1; BMI 21.4
[2022-02-09 12:28] LABS: BASO % 0.8 % (0-2.0); EOS % 0.4 % (0-4.5); HEMATOCRIT 39.6 % (32.4-45.2); HEMOGLOBIN 13.5 GM/dL (10.7-15.3); MCH 34.2 pg (25.7-33.7); MCHC 34.1 g/dl (32.0-36.0); MEAN CELL VOLUME 100.4 fl (80-96); MEAN PLT VOLUME 9.1 fl (7.5-11.1); MONO % 6.9 % (3.8-10.2); NEUT % 68.9 % (42.8-82.8); PLATELET COUNT 236 10^3/uL (134-434); RBC 3.94 M/mm3 (3.60-5.2); RDW 13.9 % (11.6-15.6); WHITE BLOOD COUNT 8.2 K/mm3 (4.0-10.0)
[2022-02-09] MEDS ORDERED: ONDANSETRON 4 MG/2 ML VIAL IVPUSH ONE (12:42)
[2022-02-09] MEDS ORDERED: ACETAMINOPHEN 1000 MG/100 ML BAG IVPB ONE (12:42)
[2022-02-09] MEDS ORDERED: SODIUM CHLORIDE 0.9% 500 ML INFUS.BAG IV ONE (12:43)
[2022-02-09] MEDS ORDERED: ACETAMINOPHEN INJECTION 100 ML IVPB ONE (12:44)
[2022-02-09] MEDS ORDERED: ONDANSETRON 4 MG/2 ML VIAL ONE (12:44)
[2022-02-09 12:45] LABS: ALBUMIN 4.2 g/dl (3.4-5.0); BLOOD UREA NITROGEN 22.2 mg/dL (7-18)
[2022-02-09 12:48] LABS: CREATININE 0.9 mg/dL (0.55-1.3)
[2022-02-09 12:49] LABS: BILIRUBIN,TOTAL 1.8 mg/dL (0.2-1)
[2022-02-09 12:50] LABS: TOT PROT 7.3 g/dl (6.4-8.2)
[2022-02-09] MEDS ORDERED: KETOROLAC TROMETHAMINE 30 MG/1 ML VIAL IVPUSH ONE (15:29)
[2022-02-09] MEDS ORDERED: KETOROLAC TROMETHAMINE 30 MG/1 ML VIAL ONE (15:30)
[2022-02-09 16:14] VITALS: BP 143/73; PULSE 66
[2022-02-09] MEDS ORDERED: ONDANSETRON 4 MG TABLET PO ONE (16:14)
[2022-02-09] MEDS ORDERED: ONDANSETRON *ODT* 4 MG TABLET ONE (16:17)
== END 2022-02-09 18:27 | disposition home or self-care (01) ==
LOC: JER 10:58
PROC: 3E033GC Introduction of Other Therapeutic Substance into Peripheral Vein, Percutaneous Approach (ICD-10-PCS; principal; 2022-02-09)
DX: K64.9 Unspecified hemorrhoids (principal)
CPT/HCPCS: 36415; 74176-TC; 80053; 85025; 99285-25

== ENCOUNTER 2022-04-19 13:40 | Observation (INO) | payer OTHER ==
[2022-04-19] MEDS ORDERED: ONDANSETRON 4 MG/2 ML VIAL IVPUSH ONE (14:17)
[2022-04-19] MEDS ORDERED: ONDANSETRON 4 MG/2 ML VIAL ONE (14:36)
[2022-04-19 14:55] LABS: BASO % 0.5 % (0-2.0); EOS % 1.9 % (0-4.5); HEMATOCRIT 34.8 % (32.4-45.2); HEMOGLOBIN 12.4 GM/dL (10.7-15.3); LYMPH % 22.4 % (8-40); MCH 34.4 pg (25.7-33.7); MCHC 35.6 g/dl (32.0-36.0); MEAN CELL VOLUME 96.6 fl (80-96); MEAN PLT VOLUME 8.7 fl (7.5-11.1); MONO % 3.9 % (3.8-10.2); NEUT % 71.3 % (42.8-82.8); PLATELET COUNT 320 10^3/uL (134-434); RBC 3.61 M/mm3 (3.60-5.2); RDW 12.5 % (11.6-15.6); WHITE BLOOD COUNT 7.7 K/mm3 (4.0-10.0)
[2022-04-19 15:25] LABS: CALCIUM 8.8 mg/dL (8.5-10.1)
[2022-04-19 15:26] LABS: ALBUMIN 3.7 g/dl (3.4-5.0); BLOOD UREA NITROGEN 21.9 mg/dL (7-18); MAGNESIUM 2.1 mg/dL (1.8-2.4)
[2022-04-19 15:29] LABS: CREATININE 0.7 mg/dL (0.55-1.3); PHOSPHOROUS 3.4 mg/dL (2.5-4.9)
[2022-04-19 15:30] LABS: BILIRUBIN,TOTAL 0.4 mg/dL (0.2-1)
[2022-04-19 15:31] LABS: TOT PROT 6.8 g/dl (6.4-8.2)
[2022-04-19] MEDS ORDERED: ONDANSETRON 4 MG/2 ML VIAL IVPUSH PRN (15:51)
[2022-04-19] MEDS: SODIUM CHLORIDE 1 GM TABLET PO SCH (23:00)
[2022-04-20] MEDS ORDERED: ONDANSETRON 4 MG/2 ML VIAL ONE (05:32)
[2022-04-20] MEDS: SODIUM CHLORIDE 1 GM TABLET PO SCH ×2 (06:40→14:19)
[2022-04-20 08:14] LABS: BASO % 0.5 % (0-2.0); HEMATOCRIT 34.5 % (32.4-45.2); HEMOGLOBIN 12.4 GM/dL (10.7-15.3); LYMPH % 36.2 % (8-40); MCH 34.7 pg (25.7-33.7); MCHC 35.9 g/dl (32.0-36.0); MEAN CELL VOLUME 96.6 fl (80-96); MEAN PLT VOLUME 8.7 fl (7.5-11.1); MONO % 8.6 % (3.8-10.2); NEUT % 50.7 % (42.8-82.8); PLATELET COUNT 285 10^3/uL (134-434); RBC 3.57 M/mm3 (3.60-5.2); RDW 12.5 % (11.6-15.6); WHITE BLOOD COUNT 5.6 K/mm3 (4.0-10.0)
[2022-04-20 08:18] LABS: ALBUMIN 3.8 g/dl (3.4-5.0); CALCIUM 9.2 mg/dL (8.5-10.1)
[2022-04-20 08:19] LABS: BLOOD UREA NITROGEN 22.1 mg/dL (7-18)
[2022-04-20 08:22] LABS: CREATININE 0.8 mg/dL (0.55-1.3)
[2022-04-20 08:23] LABS: BILIRUBIN,TOTAL 0.7 mg/dL (0.2-1); TOT PROT 6.8 g/dl (6.4-8.2)
[2022-04-20] MEDS ORDERED: LORazepam 0.5 MG TABLET PO PRN (08:50)
[2022-04-20] MEDS ORDERED: oxyCODONE HCL 5 MG TABLET ONE (12:42)
[2022-04-20] MEDS: oxyCODONE HCL 5 MG TABLET PO PRN (13:00)
[2022-04-20 15:48] LABS: CREATININE 0.9 mg/dL (0.55-1.3)
[2022-04-20 20:14] LABS: EPI CELLS 9 /uL (0-25.1); HYALINE CASTS 0 /uL (0-3.1); URINE APPEARANCE CLEAR; URINE BACTERIA 40 /uL (0-1359); URINE BILIRUBIN NEGATIVE (NEGATIVE); URINE COLOR YELLOW; URINE GLUCOSE (UA) NEGATIVE (NEGATIVE); URINE KETONE NEGATIVE (NEGATIVE); URINE LEUK ESTERASE 3+ (NEGATIVE); URINE NITRITE NEGATIVE (NEGATIVE); URINE PROTEIN NEGATIVE (NEGATIVE); URINE RBC 14 /uL (0-23.9); URINE UROBILINOGEN 0.2 mg/dL (0.2-1.0); URINE WBC 58 /uL (0-25.8)
[2022-04-21 02:36] VITALS: BMI 20.2
[2022-04-21 08:00] LABS: HEMATOCRIT 36.3 % (32.4-45.2); HEMOGLOBIN 12.7 GM/dL (10.7-15.3); MCH 34.1 pg (25.7-33.7); MCHC 34.9 g/dl (32.0-36.0); MEAN CELL VOLUME 97.8 fl (80-96); MEAN PLT VOLUME 9.4 fl (7.5-11.1); PLATELET COUNT 271 10^3/uL (134-434); RBC 3.71 M/mm3 (3.60-5.2); RDW 12.6 % (11.6-15.6)
[2022-04-21 08:31] LABS: BLOOD UREA NITROGEN 20.4 mg/dL (7-18); CALCIUM 9.5 mg/dL (8.5-10.1)
[2022-04-21 08:35] LABS: CREATININE 0.8 mg/dL (0.55-1.3)
[2022-04-21] MEDS: SODIUM CHLORIDE 1 GM TABLET PO SCH (10:45)
[2022-04-21] MEDS: oxyCODONE HCL 5 MG TABLET PO PRN (10:54)
[2022-04-21 16:46] VITALS: BP 142/75; PULSE 66; RESP 17; TEMP 97.5
== END 2022-04-21 15:00 ==
LOC: JER 13:40 → JERBED 15:37 → J2W 04-21 01:54
PROVIDERS: ADMIT Internal Medicine; ATTEND Internal Medicine
PROC: 3E033GC Introduction of Other Therapeutic Substance into Peripheral Vein, Percutaneous Approach (ICD-10-PCS; principal; 2022-04-19)
DX: E87.1 Hypo-osmolality and hyponatremia (principal); I48.0 Paroxysmal atrial fibrillation; R42 Dizziness and giddiness; E22.2 Syndrome of inappropriate secretion of antidiuretic hormone; F41.9 Anxiety disorder, unspecified; Z88.8 Allergy status to other drugs, medicaments and biological substances; R10.9 Unspecified abdominal pain; M54.9 Dorsalgia, unspecified; M25.559 Pain in unspecified hip
CPT/HCPCS: 0241U-QW; 36415; 71045-TC-FY; 80048; 80053; 81003; 83735; 83930; 83935; 84100; 84300; 84484; 84540; 85025; 85027; 87086; 93005; 93010; 96374; 96376; 99285-25; G0378

== ENCOUNTER 2022-04-27 10:57 | Emergency (ER) | payer OTHER ==
[2022-04-27 11:08] VITALS: TEMP 98.2
[2022-04-27 11:12] VITALS: BMI 20.7
[2022-04-27 12:33] LABS: BASO % 1.2 % (0-2.0); HEMATOCRIT 32.7 % (32.4-45.2); HEMOGLOBIN 11.5 GM/dL (10.7-15.3); LYMPH % 39.1 % (8-40); MCH 33.9 pg (25.7-33.7); MCHC 35.1 g/dl (32.0-36.0); MEAN CELL VOLUME 96.7 fl (80-96); MEAN PLT VOLUME 8.8 fl (7.5-11.1); MONO % 8.6 % (3.8-10.2); NEUT % 46.1 % (42.8-82.8); PLATELET COUNT 296 10^3/uL (134-434); RBC 3.38 M/mm3 (3.60-5.2); RDW 12.7 % (11.6-15.6); WHITE BLOOD COUNT 5.7 K/mm3 (4.0-10.0)
[2022-04-27 12:44] LABS: ALBUMIN 3.8 g/dl (3.4-5.0); BLOOD UREA NITROGEN 9.5 mg/dL (7-18)
[2022-04-27 12:47] LABS: CREATININE 0.7 mg/dL (0.55-1.3)
[2022-04-27 12:49] LABS: BILIRUBIN,TOTAL 0.4 mg/dL (0.2-1); TOT PROT 6.4 g/dl (6.4-8.2)
[2022-04-27] MEDS ORDERED: LORazepam 2 MG TABLET PO ONE (13:16)
[2022-04-27] MEDS ORDERED: LORazepam 1 MG TABLET ONE (13:26)
[2022-04-27 14:15] VITALS: BP 128/71; PULSE 86; RESP 20
== END 2022-04-27 14:15 | disposition home or self-care (01) ==
LOC: JER 10:57
DX: R42 Dizziness and giddiness (principal)
CPT/HCPCS: 36415; 80053; 85025; 99283-25

== ENCOUNTER 2022-06-07 14:08 | Inpatient (IN) | payer OTHER ==
[2022-06-07 14:37] VITALS: BMI 20.9
[2022-06-07] MEDS ORDERED: FAMOTIDINE 20 MG/50 ML IVPB 20 MG/50 ML MG IVPB ONE ×2 (14:57→15:02)
[2022-06-07] MEDS ORDERED: ONDANSETRON 4 MG/2 ML VIAL IVPUSH ONE (14:57)
[2022-06-07] MEDS ORDERED: ACETAMINOPHEN 1000 MG/100 ML BAG IVPB ONE (14:57)
[2022-06-07] MEDS ORDERED: ACETAMINOPHEN INJECTION 100 ML IVPB ONE (15:00)
[2022-06-07] MEDS ORDERED: ONDANSETRON 4 MG/2 ML VIAL ONE (15:01)
[2022-06-07 15:44] LABS: EOS % 2.1 % (0-4.5); HEMOGLOBIN 11.3 GM/dL (10.7-15.3); LYMPH % 33.1 % (8-40); MCH 34.5 pg (25.7-33.7); MCHC 36.5 g/dl (32.0-36.0); MEAN CELL VOLUME 94.6 fl (80-96); MEAN PLT VOLUME 8.6 fl (7.5-11.1); MONO % 8.6 % (3.8-10.2); NEUT % 55.2 % (42.8-82.8); PLATELET COUNT 243 10^3/uL (134-434); RBC 3.28 M/mm3 (3.60-5.2); RDW 12.5 % (11.6-15.6)
[2022-06-07 16:05] LABS: ALBUMIN 3.5 g/dl (3.4-5.0); BLOOD UREA NITROGEN 11.9 mg/dL (7-18); CALCIUM 8.5 mg/dL (8.5-10.1)
[2022-06-07 16:08] LABS: CREATININE 0.7 mg/dL (0.55-1.3)
[2022-06-07 16:09] LABS: BILIRUBIN,TOTAL 0.6 mg/dL (0.2-1); TOT PROT 6.3 g/dl (6.4-8.2)
[2022-06-07] MEDS ORDERED: SODIUM CHLORIDE 0.9% 1000 ML INFUS.BAG IV ONE (16:10)
[2022-06-07] MEDS ORDERED: SODIUM CHLORIDE 1,000 ML IV STA (16:18)
[2022-06-07 18:49] LABS: EPI CELLS 3 /uL (0-25.1); HYALINE CASTS 0 /uL (0-3.1); PH,URINE 5.5 (5.0-8.0); URINE APPEARANCE CLEAR; URINE BACTERIA 1 /uL (0-1359); URINE BILIRUBIN NEGATIVE (NEGATIVE); URINE COLOR YELLOW; URINE GLUCOSE (UA) NEGATIVE (NEGATIVE); URINE KETONE 3+ (NEGATIVE); URINE LEUK ESTERASE NEGATIVE (NEGATIVE); URINE NITRITE NEGATIVE (NEGATIVE); URINE PROTEIN NEGATIVE (NEGATIVE); URINE RBC 12 /uL (0-23.9); URINE UROBILINOGEN 0.2 mg/dL (0.2-1.0); URINE WBC 6 /uL (0-25.8)
[2022-06-07] MEDS ORDERED: morphine CARPU-JECT 2 MG/1 ML DISP.SYRIN IVPUSH ONE (19:01)
[2022-06-07] MEDS ORDERED: LORazepam 0.5 MG TABLET ONE (23:26)
[2022-06-07] MEDS: LORazepam 0.5 MG TABLET PO PRN (23:35)
[2022-06-08 00:10] LABS: BLOOD UREA NITROGEN 9.4 mg/dL (7-18); CALCIUM 7.9 mg/dL (8.5-10.1)
[2022-06-08 00:14] LABS: CREATININE 0.7 mg/dL (0.55-1.3)
[2022-06-08] MEDS: ONDANSETRON 4 MG/2 ML VIAL IVPUSH PRN (03:50)
[2022-06-08] MEDS ORDERED: oxyCODONE HCL 5 MG TABLET ONE (07:02)
[2022-06-08] MEDS: oxyCODONE HCL 5 MG TABLET PO PRN (07:05)
[2022-06-08 07:12] LABS: HEMATOCRIT 30.7 % (32.4-45.2); HEMOGLOBIN 11.1 GM/dL (10.7-15.3); MCH 34.5 pg (25.7-33.7); MEAN CELL VOLUME 95.7 fl (80-96); MEAN PLT VOLUME 8.9 fl (7.5-11.1); PLATELET COUNT 236 10^3/uL (134-434); RBC 3.21 M/mm3 (3.60-5.2); RDW 12.5 % (11.6-15.6); WHITE BLOOD COUNT 4.1 K/mm3 (4.0-10.0)
[2022-06-08 07:33] LABS: CALCIUM 8.2 mg/dL (8.5-10.1)
[2022-06-08 07:34] LABS: MAGNESIUM 1.7 mg/dL (1.8-2.4)
[2022-06-08 07:38] LABS: CREATININE 0.7 mg/dL (0.55-1.3)
[2022-06-08] MEDS ORDERED: ENOXAPARIN NA (PORCINE) 40 MG/0.4 ML DISP.SYRIN SQ ONE (09:18)
[2022-06-08] MEDS ORDERED: CEFTRIAXONE 1 GM/50 ML BAG ONE (09:18)
[2022-06-08] MEDS: ENOXAPARIN NA (PORCINE) 40 MG/0.4 ML DISP.SYRIN SQ SCH (09:36)
[2022-06-08] MEDS: CEFTRIAXONE 1 GM in DEXTROSE 5%-WATER - 50 ML IVPB SCH (09:36)
[2022-06-08] MEDS ORDERED: LORazepam 0.5 MG TABLET ONE (12:08)
[2022-06-08] MEDS: LORazepam 0.5 MG TABLET PO PRN (12:09)
[2022-06-08] MEDS: SODIUM CHLORIDE 1 GM TABLET PO SCH ×2 (14:03→22:15)
[2022-06-08] MEDS ORDERED: ONDANSETRON 4 MG/2 ML VIAL ONE (14:05)
[2022-06-09] MEDS ORDERED: ONDANSETRON 4 MG/2 ML VIAL ONE ×2 (01:53→11:43)
[2022-06-09] MEDS: ONDANSETRON 4 MG/2 ML VIAL IVPUSH PRN ×2 (01:59→11:20)
[2022-06-09] MEDS ORDERED: morphine CARPU-JECT 8 MG/1 ML DISP.SYRIN IVPUSH PRN (04:35)
[2022-06-09] MEDS: SODIUM CHLORIDE 1 GM TABLET PO SCH ×3 (06:07→21:22)
[2022-06-09 09:40] LABS: BASO % 0.7 % (0-2.0); EOS % 2.4 % (0-4.5); HEMATOCRIT 30.8 % (32.4-45.2); HEMOGLOBIN 11.1 GM/dL (10.7-15.3); LYMPH % 40.8 % (8-40); MCH 34.2 pg (25.7-33.7); MCHC 35.9 g/dl (32.0-36.0); MEAN CELL VOLUME 95.3 fl (80-96); MEAN PLT VOLUME 8.5 fl (7.5-11.1); MONO % 11.4 % (3.8-10.2); NEUT % 44.7 % (42.8-82.8); PLATELET COUNT 245 10^3/uL (134-434); RBC 3.24 M/mm3 (3.60-5.2); RDW 12.7 % (11.6-15.6); WHITE BLOOD COUNT 4.7 K/mm3 (4.0-10.0)
[2022-06-09 10:17] LABS: CALCIUM 8.5 mg/dL (8.5-10.1)
[2022-06-09 10:18] LABS: BLOOD UREA NITROGEN 4.9 mg/dL (7-18)
[2022-06-09 10:21] LABS: CREATININE 0.8 mg/dL (0.55-1.3)
[2022-06-09] MEDS: ENOXAPARIN NA (PORCINE) 40 MG/0.4 ML DISP.SYRIN SQ SCH (11:20)
[2022-06-09] MEDS ORDERED: cefTRIAXone SODIUM 1 GM VIAL ONE (11:22)
[2022-06-09] MEDS ORDERED: ENOXAPARIN NA (PORCINE) 40 MG/0.4 ML DISP.SYRIN SQ ONE (11:23)
[2022-06-09] MEDS: CEFTRIAXONE 1 GM in DEXTROSE 5%-WATER - 50 ML IVPB SCH (12:20)
[2022-06-09] MEDS: oxyCODONE HCL 5 MG TABLET PO PRN ×2 (17:08→17:15)
[2022-06-10] MEDS: ONDANSETRON 4 MG/2 ML VIAL IVPUSH PRN (04:26)
[2022-06-10] MEDS: SODIUM CHLORIDE 1 GM TABLET PO SCH ×3 (06:02→21:51)
[2022-06-10] MEDS: ENOXAPARIN NA (PORCINE) 40 MG/0.4 ML DISP.SYRIN SQ SCH (09:25)
[2022-06-10] MEDS: CEFTRIAXONE 1 GM in DEXTROSE 5%-WATER - 50 ML IVPB SCH (09:26)
[2022-06-10] MEDS: LORazepam 0.5 MG TABLET PO PRN (09:27)
[2022-06-10 09:28] LABS: BASO % 0.8 % (0-2.0); EOS % 2.7 % (0-4.5); HEMATOCRIT 30.6 % (32.4-45.2); HEMOGLOBIN 11.1 GM/dL (10.7-15.3); LYMPH % 43.8 % (8-40); MCH 34.7 pg (25.7-33.7); MCHC 36.4 g/dl (32.0-36.0); MEAN CELL VOLUME 95.4 fl (80-96); NEUT % 40.7 % (42.8-82.8); PLATELET COUNT 229 10^3/uL (134-434); RDW 12.5 % (11.6-15.6); WHITE BLOOD COUNT 4.3 K/mm3 (4.0-10.0)
[2022-06-10 09:55] LABS: CALCIUM 8.7 mg/dL (8.5-10.1)
[2022-06-10 09:59] LABS: CREATININE 0.7 mg/dL (0.55-1.3)
[2022-06-10] MEDS: POLYETHYLENE GLYCOL (HEALTHYLAX) 3350 17 GM PACKET PO SCH ×2 (13:37→22:01)
[2022-06-10] MEDS: oxyCODONE HCL 5 MG TABLET PO PRN ×2 (13:42→21:51)
[2022-06-10] MEDS ORDERED: MAG HYDROX/AL HYDROX/SIMETH -MYLANTA- ORAL SUSPENSION PO PRN (15:00)
[2022-06-10 18:53] VITALS: RESP 18
[2022-06-10] MEDS ORDERED: ONDANSETRON 4 MG TABLET PO ONE (21:32)
[2022-06-10] MEDS: FAMOTIDINE 20 MG TABLET PO SCH (21:51)
[2022-06-10] MEDS ORDERED: ONDANSETRON 8 MG TABLET (FP) PO SCH (22:00)
[2022-06-10] MEDS ORDERED: MAG HYDROX/AL HYDROX/SIMETH 30 ML UNIT-DOSE CUP PO PRN (22:50)
[2022-06-10] MEDS ORDERED: ONDANSETRON 4 MG TABLET PO SCH (22:51)
[2022-06-11] MEDS: SODIUM CHLORIDE 1 GM TABLET PO SCH ×2 (06:16→14:43)
[2022-06-11] MEDS: oxyCODONE HCL 5 MG TABLET PO PRN ×2 (06:19→14:42)
[2022-06-11 10:35] LABS: CALCIUM 8.7 mg/dL (8.5-10.1)
[2022-06-11 10:36] LABS: BLOOD UREA NITROGEN 5.8 mg/dL (7-18)
[2022-06-11 10:39] LABS: CREATININE 0.8 mg/dL (0.55-1.3)
[2022-06-11] MEDS: ENOXAPARIN NA (PORCINE) 40 MG/0.4 ML DISP.SYRIN SQ SCH (11:01)
[2022-06-11] MEDS: FAMOTIDINE 20 MG TABLET PO SCH (11:01)
[2022-06-11] MEDS: LORazepam 0.5 MG TABLET PO PRN (11:01)
[2022-06-11] MEDS: POLYETHYLENE GLYCOL (HEALTHYLAX) 3350 17 GM PACKET PO SCH (11:02)
[2022-06-11] MEDS: CEFTRIAXONE 1 GM in DEXTROSE 5%-WATER - 50 ML IVPB SCH (11:04)
[2022-06-11 15:47] VITALS: BP 108/56; PULSE 64; TEMP 97.9
== END 2022-06-11 15:52 | disposition home or self-care (01) | DRG 392 ==
LOC: JER 14:08 → JERBED 18:39 → J5S 06-09 16:25
PROVIDERS: ADMIT Internal Medicine; ATTEND Internal Medicine
DX: K57.92 Diverticulitis of intestine, part unspecified, without perforation or abscess without bleeding (principal); E87.1 Hypo-osmolality and hyponatremia; R19.7 Diarrhea, unspecified; F41.9 Anxiety disorder, unspecified
CPT/HCPCS: 0241U-QW; 36415; 74177-TC; 80048; 80053; 81003; 82962; 83690; 83735; 84484; 85025; 85027; 87086; 93005; 93010; 97116-GP; 97162-GP; 99285-25; Q9967

== ENCOUNTER 2022-06-17 12:53 | Inpatient (IN) | payer OTHER ==
[2022-06-17] MEDS ORDERED: ACETAMINOPHEN 1000 MG/100 ML BAG IVPB ONE (13:24)
[2022-06-17] MEDS ORDERED: ONDANSETRON 4 MG/2 ML VIAL IVPUSH ONE ×2 (13:26→18:35)
[2022-06-17] MEDS ORDERED: ONDANSETRON 4 MG/2 ML VIAL ONE ×2 (13:36→18:36)
[2022-06-17] MEDS ORDERED: ACETAMINOPHEN INJECTION 100 ML IVPB ONE (13:36)
[2022-06-17] MEDS ORDERED: morphine CARPU-JECT 4 MG/1 ML DISP.SYRIN IVPUSH ONE ×2 (13:39→18:33)
[2022-06-17 14:34] VITALS: BMI 20.9
[2022-06-17] MEDS ORDERED: morphine SULFATE 4 MG/ML VIAL ONE ×2 (14:50→18:36)
[2022-06-17] MEDS ORDERED: DICYCLOMINE HCL 20 MG TABLET PO ONE (15:01)
[2022-06-17] MEDS ORDERED: DICYCLOMINE HCL 10 MG CAPSULE ONE (15:06)
[2022-06-17 16:32] LABS: EPI CELLS 2 /uL (0-25.1); HYALINE CASTS 0 /uL (0-3.1); PH,URINE >= 9.0 (5.0-8.0); URINE APPEARANCE CLOUDY; URINE BACTERIA 13 /uL (0-1359); URINE BILIRUBIN NEGATIVE (NEGATIVE); URINE COLOR YELLOW; URINE GLUCOSE (UA) NEGATIVE (NEGATIVE); URINE KETONE 1+ (NEGATIVE); URINE LEUK ESTERASE TRACE (NEGATIVE); URINE NITRITE NEGATIVE (NEGATIVE); URINE PROTEIN NEGATIVE (NEGATIVE); URINE RBC 54 /uL (0-23.9); URINE UROBILINOGEN 0.2 mg/dL (0.2-1.0); URINE WBC 5 /uL (0-25.8)
[2022-06-17 17:04] LABS: HEMATOCRIT 33.4 % (32.4-45.2); HEMOGLOBIN 11.7 GM/dL (10.7-15.3); LYMPH % 43.1 % (8-40); MCH 33.4 pg (25.7-33.7); MCHC 35.1 g/dl (32.0-36.0); MEAN CELL VOLUME 95.2 fl (80-96); MEAN PLT VOLUME 9.2 fl (7.5-11.1); MONO % 6.4 % (3.8-10.2); NEUT % 47.5 % (42.8-82.8); PLATELET COUNT 334 10^3/uL (134-434); RBC 3.51 M/mm3 (3.60-5.2); RDW 12.7 % (11.6-15.6); WHITE BLOOD COUNT 4.8 K/mm3 (4.0-10.0)
[2022-06-17 17:31] LABS: CALCIUM 8.9 mg/dL (8.5-10.1)
[2022-06-17 17:32] LABS: ALBUMIN 3.9 g/dl (3.4-5.0); BLOOD UREA NITROGEN 6.8 mg/dL (7-18)
[2022-06-17 17:35] LABS: CREATININE 0.7 mg/dL (0.55-1.3)
[2022-06-17 17:37] LABS: BILIRUBIN,TOTAL 0.6 mg/dL (0.2-1); TOT PROT 6.6 g/dl (6.4-8.2)
[2022-06-17] MEDS ORDERED: SODIUM CHLORIDE 0.9% 500 ML INFUS.BAG IV ONE (17:42)
[2022-06-17] MEDS ORDERED: SODIUM CHLORIDE 1 GM TABLET PO ONE (18:32)
[2022-06-18] MEDS ORDERED: ONDANSETRON 4 MG/2 ML VIAL IVPUSH ONE (03:56)
[2022-06-18] MEDS ORDERED: ONDANSETRON 4 MG/2 ML VIAL ONE ×2 (04:24→09:54)
[2022-06-18] MEDS ORDERED: KETOROLAC TROMETHAMINE 15 MG/ML VIAL IVPUSH ONE (05:00)
[2022-06-18 07:12] LABS: BASO % 0.9 % (0-2.0); EOS % 2.3 % (0-4.5); HEMOGLOBIN 11.1 GM/dL (10.7-15.3); LYMPH % 41.9 % (8-40); MCH 34.4 pg (25.7-33.7); MCHC 35.9 g/dl (32.0-36.0); MEAN CELL VOLUME 95.7 fl (80-96); MEAN PLT VOLUME 8.5 fl (7.5-11.1); MONO % 9.3 % (3.8-10.2); NEUT % 45.6 % (42.8-82.8); PLATELET COUNT 275 10^3/uL (134-434); RBC 3.24 M/mm3 (3.60-5.2); RDW 12.8 % (11.6-15.6); WHITE BLOOD COUNT 4.3 K/mm3 (4.0-10.0)
[2022-06-18 07:23] LABS: BLOOD UREA NITROGEN 7.4 mg/dL (7-18); CALCIUM 8.7 mg/dL (8.5-10.1)
[2022-06-18 07:24] LABS: ALBUMIN 3.5 g/dl (3.4-5.0)
[2022-06-18 07:26] LABS: CREATININE 0.6 mg/dL (0.55-1.3)
[2022-06-18 07:28] LABS: BILIRUBIN,TOTAL 0.6 mg/dL (0.2-1); TOT PROT 5.8 g/dl (6.4-8.2)
[2022-06-18] MEDS: ONDANSETRON 4 MG/2 ML VIAL IVPUSH PRN (10:00)
[2022-06-18] MEDS ORDERED: SODIUM CHLORIDE 0.9% 500 ML INFUS.BAG IV ONE (10:29)
[2022-06-18] MEDS ORDERED: KETOROLAC TROMETHAMINE 15 MG/ML VIAL ONE (11:51)
[2022-06-18] MEDS ORDERED: LORazepam 0.5 MG TABLET ONE (11:51)
[2022-06-18] MEDS ORDERED: ENOXAPARIN NA (PORCINE) 40 MG/0.4 ML DISP.SYRIN SQ ONE (11:52)
[2022-06-18] MEDS: KETOROLAC TROMETHAMINE 15 MG/ML VIAL IVPUSH PRN (12:14)
[2022-06-18] MEDS: LORazepam 0.5 MG TABLET PO PRN (12:14)
[2022-06-18] MEDS: ENOXAPARIN NA (PORCINE) 40 MG/0.4 ML DISP.SYRIN SQ SCH (12:15)
[2022-06-18 13:03] LABS: SODIUM 125 mmol/L (136-145)
[2022-06-18] MEDS ORDERED: CEFTRIAXONE 1 GM in DEXTROSE 5%-WATER - 50 ML IVPB SCH (13:21)
[2022-06-18 15:03] LABS: ERYTHROCYTE SEDIMENTATION RATE 3 mm/hr (0-30)
[2022-06-18] MEDS: SODIUM CHLORIDE 1 GM TABLET PO SCH (16:29)
[2022-06-18] MEDS ORDERED: PIPERACILLIN/TAZOB 3.375 GM 3.375 GM/50 ML BAG IVPB ONE (17:51)
[2022-06-18] MEDS: PIPERACILLIN/TAZOB 3.375 GM 3.375 GM in DEXTROSE 5%-WATER - 50 ML IVPB SCH (18:00)
[2022-06-19] MEDS: SODIUM CHLORIDE 1 GM TABLET PO SCH ×4 (01:50→22:02)
[2022-06-19] MEDS ORDERED: ONDANSETRON 4 MG/2 ML VIAL ONE (04:08)
[2022-06-19] MEDS: ONDANSETRON 4 MG/2 ML VIAL IVPUSH PRN (04:10)
[2022-06-19] MEDS: PIPERACILLIN/TAZOB 3.375 GM 3.375 GM in DEXTROSE 5%-WATER - 50 ML IVPB SCH ×3 (05:10→18:32)
[2022-06-19] MEDS ORDERED: PIPERACILLIN/TAZOB 3.375 GM 3.375 GM/50 ML BAG IVPB ONE ×3 (05:11→18:35)
[2022-06-19 07:15] LABS: BASO % 1.1 % (0-2.0); EOS % 1.7 % (0-4.5); HEMATOCRIT 30.2 % (32.4-45.2); HEMOGLOBIN 10.9 GM/dL (10.7-15.3); LYMPH % 38.1 % (8-40); MCH 34.2 pg (25.7-33.7); MEAN CELL VOLUME 94.9 fl (80-96); MEAN PLT VOLUME 8.4 fl (7.5-11.1); MONO % 8.4 % (3.8-10.2); NEUT % 50.7 % (42.8-82.8); PLATELET COUNT 318 10^3/uL (134-434); RBC 3.18 M/mm3 (3.60-5.2); RDW 12.3 % (11.6-15.6); WHITE BLOOD COUNT 4.2 K/mm3 (4.0-10.0)
[2022-06-19 07:50] LABS: CALCIUM 8.4 mg/dL (8.5-10.1)
[2022-06-19 07:51] LABS: BLOOD UREA NITROGEN 11.6 mg/dL (7-18)
[2022-06-19 07:54] LABS: CREATININE 0.7 mg/dL (0.55-1.3)
[2022-06-19] MEDS ORDERED: KETOROLAC TROMETHAMINE 15 MG/ML VIAL ONE (08:52)
[2022-06-19] MEDS: KETOROLAC TROMETHAMINE 15 MG/ML VIAL IVPUSH PRN (08:58)
[2022-06-19] MEDS ORDERED: ENOXAPARIN NA (PORCINE) 40 MG/0.4 ML DISP.SYRIN SQ ONE (10:01)
[2022-06-19] MEDS: ENOXAPARIN NA (PORCINE) 40 MG/0.4 ML DISP.SYRIN SQ SCH (10:06)
[2022-06-19] MEDS ORDERED: KETOROLAC TROMETHAMINE 15 MG/ML VIAL IVPUSH PRN (10:13)
[2022-06-19] MEDS ORDERED: DEXTROSE 5%-NORMAL SALINE 1,000 ML IV SCH (16:45)
[2022-06-20] MEDS: PIPERACILLIN/TAZOB 3.375 GM 3.375 GM in DEXTROSE 5%-WATER - 50 ML IVPB SCH ×3 (01:31→19:20)
[2022-06-20] MEDS: ONDANSETRON 4 MG/2 ML VIAL IVPUSH PRN (03:28)
[2022-06-20] MEDS: SODIUM CHLORIDE 1 GM TABLET PO SCH ×3 (05:44→21:24)
[2022-06-20 06:37] LABS: BASO % 1.2 % (0-2.0); EOS % 3.1 % (0-4.5); HEMATOCRIT 29.2 % (32.4-45.2); HEMOGLOBIN 10.1 GM/dL (10.7-15.3); LYMPH % 40.7 % (8-40); MCH 33.1 pg (25.7-33.7); MCHC 34.7 g/dl (32.0-36.0); MEAN CELL VOLUME 95.5 fl (80-96); MEAN PLT VOLUME 8.8 fl (7.5-11.1); MONO % 15.4 % (3.8-10.2); NEUT % 39.6 % (42.8-82.8); PLATELET COUNT 307 10^3/uL (134-434); RBC 3.05 M/mm3 (3.60-5.2); RDW 12.4 % (11.6-15.6); WHITE BLOOD COUNT 3.3 K/mm3 (4.0-10.0)
[2022-06-20 07:01] LABS: BLOOD UREA NITROGEN 10.2 mg/dL (7-18); MAGNESIUM 1.9 mg/dL (1.8-2.4)
[2022-06-20 07:02] LABS: CALCIUM 8.1 mg/dL (8.5-10.1)
[2022-06-20 07:04] LABS: CREATININE 0.7 mg/dL (0.55-1.3)
[2022-06-20 07:06] LABS: BILIRUBIN,TOTAL 0.6 mg/dL (0.2-1); TOT PROT 5.2 g/dl (6.4-8.2)
[2022-06-20] MEDS: ENOXAPARIN NA (PORCINE) 40 MG/0.4 ML DISP.SYRIN SQ SCH (09:59)
[2022-06-20] MEDS ORDERED: FLU VACC QS2022-23(6MOS UP)/PF 60 MCG/0.5 ML SYRINGE IM ONE (10:00)
[2022-06-20] MEDS: POLYETHYLENE GLYCOL (HEALTHYLAX) 3350 17 GM PACKET PO SCH (21:24)
[2022-06-21] MEDS: PIPERACILLIN/TAZOB 3.375 GM 3.375 GM in DEXTROSE 5%-WATER - 50 ML IVPB SCH ×3 (01:37→17:06)
[2022-06-21] MEDS: ONDANSETRON 4 MG/2 ML VIAL IVPUSH PRN ×2 (03:43→09:25)
[2022-06-21] MEDS: SODIUM CHLORIDE 1 GM TABLET PO SCH ×3 (06:28→21:09)
[2022-06-21 07:02] LABS: EOS % 6.1 % (0-4.5); HEMATOCRIT 30.6 % (32.4-45.2); HEMOGLOBIN 10.5 GM/dL (10.7-15.3); LYMPH % 40.6 % (8-40); MCHC 34.3 g/dl (32.0-36.0); MEAN CELL VOLUME 96.3 fl (80-96); MEAN PLT VOLUME 8.4 fl (7.5-11.1); MONO % 12.7 % (3.8-10.2); NEUT % 39.6 % (42.8-82.8); PLATELET COUNT 324 10^3/uL (134-434); RBC 3.18 M/mm3 (3.60-5.2); RDW 12.8 % (11.6-15.6); WHITE BLOOD COUNT 4.3 K/mm3 (4.0-10.0)
[2022-06-21 07:23] LABS: ALBUMIN 3.1 g/dl (3.4-5.0); CALCIUM 8.6 mg/dL (8.5-10.1); MAGNESIUM 1.8 mg/dL (1.8-2.4)
[2022-06-21 07:25] LABS: CREATININE 0.7 mg/dL (0.55-1.3)
[2022-06-21 07:26] LABS: BILIRUBIN,TOTAL 0.4 mg/dL (0.2-1)
[2022-06-21 07:28] LABS: TOT PROT 5.2 g/dl (6.4-8.2)
[2022-06-21] MEDS: ENOXAPARIN NA (PORCINE) 40 MG/0.4 ML DISP.SYRIN SQ SCH (09:10)
[2022-06-21] MEDS: POLYETHYLENE GLYCOL (HEALTHYLAX) 3350 17 GM PACKET PO SCH (09:29)
[2022-06-21] MEDS: VANCOMYCIN 250 MG/5 ML ORAL SOLUTION PO SCH ×2 (12:24→17:08)
[2022-06-21] MEDS ORDERED: POLYETHYLENE GLYCOL (HEALTHYLAX) 3350 17 GM PACKET PO PRN (20:45)
[2022-06-21] MEDS: LORazepam 0.5 MG TABLET PO PRN (21:18)
[2022-06-21] MEDS ORDERED: LIDOCAINE 5% TOPICAL PATCH TP ONE (22:02)
[2022-06-21] MEDS: LIDOCAINE PATCH REMOVAL MC SCH (22:19)
[2022-06-22] MEDS: VANCOMYCIN 250 MG/5 ML ORAL SOLUTION PO SCH ×4 (01:16→17:56)
[2022-06-22] MEDS: PIPERACILLIN/TAZOB 3.375 GM 3.375 GM in DEXTROSE 5%-WATER - 50 ML IVPB SCH ×3 (01:16→17:56)
[2022-06-22] MEDS: SODIUM CHLORIDE 1 GM TABLET PO SCH ×3 (06:04→21:08)
[2022-06-22] MEDS: ONDANSETRON 4 MG/2 ML VIAL IVPUSH PRN (06:16)
[2022-06-22 08:33] LABS: BASO % 0.7 % (0-2.0); EOS % 5.2 % (0-4.5); HEMATOCRIT 30.6 % (32.4-45.2); HEMOGLOBIN 10.6 GM/dL (10.7-15.3); LYMPH % 35.8 % (8-40); MCH 33.8 pg (25.7-33.7); MCHC 34.7 g/dl (32.0-36.0); MEAN CELL VOLUME 97.4 fl (80-96); MEAN PLT VOLUME 8.3 fl (7.5-11.1); NEUT % 47.3 % (42.8-82.8); PLATELET COUNT 315 10^3/uL (134-434); RBC 3.14 M/mm3 (3.60-5.2); RDW 13.2 % (11.6-15.6); WHITE BLOOD COUNT 5.3 K/mm3 (4.0-10.0)
[2022-06-22 08:53] LABS: CALCIUM 8.6 mg/dL (8.5-10.1)
[2022-06-22 08:54] LABS: BLOOD UREA NITROGEN 3.1 mg/dL (7-18)
[2022-06-22 08:57] LABS: CREATININE 0.6 mg/dL (0.55-1.3)
[2022-06-22 08:58] LABS: BILIRUBIN,TOTAL 0.5 mg/dL (0.2-1); TOT PROT 5.5 g/dl (6.4-8.2)
[2022-06-22] MEDS: ENOXAPARIN NA (PORCINE) 40 MG/0.4 ML DISP.SYRIN SQ SCH (09:58)
[2022-06-22] MEDS ORDERED: ACETAMINOPHEN 325 MG TABLET (FP) PO ONE (13:32)
[2022-06-22] MEDS: LIDOCAINE 5% TOPICAL PATCH TP SCH (16:00)
[2022-06-22] MEDS: LORazepam 0.5 MG TABLET PO PRN (20:56)
[2022-06-22] MEDS: LIDOCAINE PATCH REMOVAL MC SCH ×2 (21:06→21:08)
[2022-06-23] MEDS: PIPERACILLIN/TAZOB 3.375 GM 3.375 GM in DEXTROSE 5%-WATER - 50 ML IVPB SCH ×3 (01:07→17:50)
[2022-06-23] MEDS: VANCOMYCIN 250 MG/5 ML ORAL SOLUTION PO SCH ×4 (01:07→17:51)
[2022-06-23] MEDS: ONDANSETRON 4 MG/2 ML VIAL IVPUSH PRN (02:04)
[2022-06-23] MEDS: SODIUM CHLORIDE 1 GM TABLET PO SCH ×3 (05:28→21:02)
[2022-06-23] MEDS: ENOXAPARIN NA (PORCINE) 40 MG/0.4 ML DISP.SYRIN SQ SCH (09:11)
[2022-06-23] MEDS: LIDOCAINE 5% TOPICAL PATCH TP SCH (09:11)
[2022-06-23 09:16] LABS: CALCIUM 8.6 mg/dL (8.5-10.1)
[2022-06-23 09:18] LABS: BLOOD UREA NITROGEN 4.1 mg/dL (7-18)
[2022-06-23 09:20] LABS: CREATININE 0.6 mg/dL (0.55-1.3)
[2022-06-23] MEDS: LORazepam 0.5 MG TABLET PO PRN ×2 (11:34→21:02)
[2022-06-23] MEDS: oxyCODONE HCL 5 MG TABLET PO PRN ×2 (13:32→21:02)
[2022-06-23] MEDS: LIDOCAINE PATCH REMOVAL MC SCH ×2 (21:06)
[2022-06-24] MEDS: VANCOMYCIN 250 MG/5 ML ORAL SOLUTION PO SCH ×4 (01:02→18:02)
[2022-06-24] MEDS: PIPERACILLIN/TAZOB 3.375 GM 3.375 GM in DEXTROSE 5%-WATER - 50 ML IVPB SCH ×3 (01:03→09:04)
[2022-06-24] MEDS: oxyCODONE HCL 5 MG TABLET PO PRN ×4 (01:41→18:15)
[2022-06-24] MEDS: SODIUM CHLORIDE 1 GM TABLET PO SCH ×2 (05:59→13:02)
[2022-06-24] MEDS: ENOXAPARIN NA (PORCINE) 40 MG/0.4 ML DISP.SYRIN SQ SCH (09:04)
[2022-06-24] MEDS: LIDOCAINE 5% TOPICAL PATCH TP SCH (09:04)
[2022-06-24 12:25] LABS: BASO % 1.1 % (0-2.0); EOS % 3.6 % (0-4.5); HEMATOCRIT 30.1 % (32.4-45.2); HEMOGLOBIN 10.6 GM/dL (10.7-15.3); LYMPH % 34.8 % (8-40); MCH 33.9 pg (25.7-33.7); MCHC 35.1 g/dl (32.0-36.0); MEAN CELL VOLUME 96.5 fl (80-96); MEAN PLT VOLUME 8.4 fl (7.5-11.1); MONO % 8.4 % (3.8-10.2); NEUT % 52.1 % (42.8-82.8); PLATELET COUNT 279 10^3/uL (134-434); RBC 3.12 M/mm3 (3.60-5.2); RDW 12.7 % (11.6-15.6); WHITE BLOOD COUNT 5.2 K/mm3 (4.0-10.0)
[2022-06-24 12:38] VITALS: RESP 18
[2022-06-24 12:54] LABS: CALCIUM 8.8 mg/dL (8.5-10.1)
[2022-06-24 12:58] LABS: CREATININE 0.6 mg/dL (0.55-1.3)
[2022-06-24 12:59] LABS: BILIRUBIN,TOTAL 0.6 mg/dL (0.2-1); TOT PROT 5.5 g/dl (6.4-8.2)
[2022-06-24] MEDS ORDERED: LACTOBACILLUS ACIDOPHILUS 1 TABLET PO ONE (15:41)
[2022-06-24] MEDS: AMOX TR/POT CLAV 500MG/125MG TABLETS (FP) PO SCH (18:16)
[2022-06-24] MEDS: LORazepam 0.5 MG TABLET PO PRN (21:18)
[2022-06-24] MEDS: LIDOCAINE PATCH REMOVAL MC SCH ×2 (21:26)
[2022-06-25] MEDS: SODIUM CHLORIDE 1 GM TABLET PO SCH ×3 (00:52→14:06)
[2022-06-25] MEDS: VANCOMYCIN 250 MG/5 ML ORAL SOLUTION PO SCH ×3 (00:53→14:07)
[2022-06-25] MEDS: BANATROL PLUS POWDER PACKET PO SCH ×3 (00:53→14:06)
[2022-06-25] MEDS: oxyCODONE HCL 5 MG TABLET PO PRN ×3 (04:57→15:05)
[2022-06-25] MEDS: ONDANSETRON 4 MG/2 ML VIAL IVPUSH PRN (04:58)
[2022-06-25 09:20] LABS: BASO % 0.2 % (0-2.0); EOS % 3.8 % (0-4.5); HEMATOCRIT 30.7 % (32.4-45.2); HEMOGLOBIN 10.6 GM/dL (10.7-15.3); LYMPH % 39.5 % (8-40); MCH 33.3 pg (25.7-33.7); MCHC 34.5 g/dl (32.0-36.0); MEAN CELL VOLUME 96.3 fl (80-96); MEAN PLT VOLUME 8.9 fl (7.5-11.1); MONO % 8.3 % (3.8-10.2); NEUT % 48.2 % (42.8-82.8); PLATELET COUNT 309 10^3/uL (134-434); RBC 3.18 M/mm3 (3.60-5.2); RDW 12.7 % (11.6-15.6); WHITE BLOOD COUNT 4.7 K/mm3 (4.0-10.0)
[2022-06-25 09:56] LABS: ALBUMIN 3.1 g/dl (3.4-5.0); CREATININE 0.6 mg/dL (0.55-1.3)
[2022-06-25 09:59] LABS: CALCIUM 8.8 mg/dL (8.5-10.1)
[2022-06-25 10:00] LABS: BILIRUBIN,TOTAL 0.5 mg/dL (0.2-1); MAGNESIUM 1.9 mg/dL (1.8-2.4); TOT PROT 5.7 g/dl (6.4-8.2)
[2022-06-25] MEDS ORDERED: LACTOBACILLUS ACIDOPHILUS 1 TABLET PO SCH (10:00)
[2022-06-25 10:36] VITALS: BP 147/65; PULSE 69; TEMP 98.1
[2022-06-25] MEDS: ENOXAPARIN NA (PORCINE) 40 MG/0.4 ML DISP.SYRIN SQ SCH (10:37)
[2022-06-25] MEDS: LIDOCAINE 5% TOPICAL PATCH TP SCH (10:38)
[2022-06-25] MEDS: AMOX TR/POT CLAV 500MG/125MG TABLETS (FP) PO SCH (10:38)
[2022-06-25] MEDS: LORazepam 0.5 MG TABLET PO PRN (10:44)
== END 2022-06-25 15:34 | disposition home or self-care (01) | DRG 392 ==
LOC: JER 12:53 → JERBED 20:38 → J4S 06-19 20:34 → J7W 06-24 18:45
PROVIDERS: ADMIT Internal Medicine; ATTEND Nurse Practitioner Acute Care
DX: K57.92 Diverticulitis of intestine, part unspecified, without perforation or abscess without bleeding (principal); E22.2 Syndrome of inappropriate secretion of antidiuretic hormone; A04.72 Enterocolitis due to Clostridium difficile, not specified as recurrent; M81.0 Age-related osteoporosis without current pathological fracture; G89.29 Other chronic pain; F41.9 Anxiety disorder, unspecified; R11.0 Nausea; M19.90 Unspecified osteoarthritis, unspecified site; M79.643 Pain in unspecified hand; K59.00 Constipation, unspecified; M25.511 Pain in right shoulder; R60.0 Localized edema; M25.531 Pain in right wrist
CPT/HCPCS: 36415; 71045-TC-FY; 73110-TC-RT-FY; 73130-TC-RT-FY; 74177-TC; 80048; 80053; 81003; 83735; 84295; 84484; 85025; 85651; 86140; 87086; 87209; 87324; 87449; 93005; 93010; 93971; 99285-25; C9803-CS; G0008; Q2036; Q9967; U0003; U0005

== ENCOUNTER 2022-12-01 02:59 | Observation (INO) | payer OTHER ==
[2022-12-01 03:51] VITALS: BMI 22.4
[2022-12-01] MEDS ORDERED: ONDANSETRON 4 MG/2 ML VIAL IVPUSH ONE ×2 (04:15→06:27)
[2022-12-01] MEDS ORDERED: ACETAMINOPHEN 1000 MG/100 ML BAG IVPB ONE (04:15)
[2022-12-01] MEDS ORDERED: ONDANSETRON 4 MG/2 ML VIAL ONE ×2 (04:51→06:49)
[2022-12-01] MEDS ORDERED: ACETAMINOPHEN INJECTION 100 ML IVPB ONE (04:51)
[2022-12-01 05:40] LABS: BASO % 1.4 % (0-2.0); EOS % 0.8 % (0-4.5); HEMATOCRIT 36.5 % (32.4-45.2); HEMOGLOBIN 12.6 GM/dL (10.7-15.3); LYMPH % 21.5 % (8-40); MCH 33.1 pg (25.7-33.7); MCHC 34.5 g/dl (32.0-36.0); MONO % 6.8 % (3.8-10.2); NEUT % 69.5 % (42.8-82.8); PLATELET COUNT 285 10^3/uL (134-434); WHITE BLOOD COUNT 8.3 K/mm3 (4.0-10.0)
[2022-12-01] MEDS ORDERED: morphine CARPU-JECT 4 MG/1 ML DISP.SYRIN IVPUSH ONE (06:37)
[2022-12-01 07:27] LABS: ALBUMIN 4.1 g/dl (3.4-5.0); CALCIUM 9.3 mg/dL (8.5-10.1)
[2022-12-01 07:28] LABS: BLOOD UREA NITROGEN 50.4 mg/dL (7-18)
[2022-12-01 07:30] LABS: CREATININE 0.9 mg/dL (0.55-1.3)
[2022-12-01 07:32] LABS: BILIRUBIN,TOTAL 0.9 mg/dL (0.2-1)
[2022-12-01] MEDS ORDERED: morphine CARPU-JECT 2 MG/1 ML DISP.SYRIN IVPUSH ONE (08:16)
[2022-12-01] MEDS ORDERED: DEXTROSE 5%-NORMAL SALINE 1,000 ML IV SCH ×3 (09:00→18:45)
[2022-12-01] MEDS: HYDROCORTISONE 5 MG TABLET PO SCH ×2 (12:16→22:23)
[2022-12-01] MEDS ORDERED: LORazepam 0.5 MG TABLET ONE (12:17)
[2022-12-01] MEDS: LORazepam 0.5 MG TABLET PO PRN (12:20)
[2022-12-01] MEDS ORDERED: ENOXAPARIN NA (PORCINE) 40 MG/0.4 ML DISP.SYRIN SQ ONE (12:23)
[2022-12-01] MEDS: ENOXAPARIN NA (PORCINE) 40 MG/0.4 ML DISP.SYRIN SQ SCH (12:24)
[2022-12-01] MEDS: SODIUM CHLORIDE 1 GM TABLET PO SCH ×2 (16:54→22:23)
[2022-12-02] MEDS: oxyCODONE HCL 5 MG TABLET PO PRN ×3 (03:47→20:15)
[2022-12-02] MEDS: SODIUM CHLORIDE 1 GM TABLET PO SCH ×3 (06:01→22:43)
[2022-12-02] MEDS: LORazepam 0.5 MG TABLET PO PRN (06:06)
[2022-12-02 07:37] LABS: BASO % 0.7 % (0-2.0); EOS % 3.2 % (0-4.5); HEMATOCRIT 32.4 % (32.4-45.2); HEMOGLOBIN 11.3 GM/dL (10.7-15.3); LYMPH % 34.2 % (8-40); MCH 33.5 pg (25.7-33.7); MCHC 34.8 g/dl (32.0-36.0); MEAN CELL VOLUME 96.4 fl (80-96); MEAN PLT VOLUME 8.8 fl (7.5-11.1); MONO % 8.6 % (3.8-10.2); NEUT % 53.3 % (42.8-82.8); PLATELET COUNT 235 10^3/uL (134-434); RBC 3.36 M/mm3 (3.60-5.2); RDW 13.1 % (11.6-15.6); WHITE BLOOD COUNT 6.4 K/mm3 (4.0-10.0)
[2022-12-02 07:59] LABS: CALCIUM 8.5 mg/dL (8.5-10.1); MAGNESIUM 2.3 mg/dL (1.8-2.4)
[2022-12-02 08:02] LABS: CREATININE 0.8 mg/dL (0.55-1.3); PHOSPHOROUS 2.2 mg/dL (2.5-4.9)
[2022-12-02 08:04] LABS: BILIRUBIN,TOTAL 0.7 mg/dL (0.2-1); TOT PROT 5.8 g/dl (6.4-8.2)
[2022-12-02 08:45] LABS: ALBUMIN 3.2 g/dl (3.4-5.0); BLOOD UREA NITROGEN 24.7 mg/dL (7-18)
[2022-12-02] MEDS: HYDROCORTISONE 5 MG TABLET PO SCH ×2 (09:02→22:43)
[2022-12-02] MEDS: ENOXAPARIN NA (PORCINE) 40 MG/0.4 ML DISP.SYRIN SQ SCH (09:02)
[2022-12-02 11:12] LABS: PH,URINE 5.5 (5.0-8.0); URINE APPEARANCE CLEAR; URINE BILIRUBIN NEGATIVE (NEGATIVE); URINE COLOR YELLOW; URINE GLUCOSE (UA) NEGATIVE (NEGATIVE); URINE KETONE NEGATIVE (NEGATIVE); URINE LEUK ESTERASE NEGATIVE (NEGATIVE); URINE NITRITE NEGATIVE (NEGATIVE); URINE PROTEIN NEGATIVE (NEGATIVE); URINE UROBILINOGEN 0.2 mg/dL (0.2-1.0)
[2022-12-03] MEDS: oxyCODONE HCL 5 MG TABLET PO PRN ×2 (05:25→14:26)
[2022-12-03] MEDS: SODIUM CHLORIDE 1 GM TABLET PO SCH ×2 (05:25→14:28)
[2022-12-03 08:50] VITALS: RESP 18
[2022-12-03] MEDS: ENOXAPARIN NA (PORCINE) 40 MG/0.4 ML DISP.SYRIN SQ SCH (09:52)
[2022-12-03] MEDS: HYDROCORTISONE 5 MG TABLET PO SCH (09:53)
[2022-12-03] MEDS ORDERED: ACETAMINOPHEN 1000 MG/100 ML BAG IVPB ONE (11:33)
[2022-12-03 14:02] VITALS: BP 136/65; PULSE 69; TEMP 98
== END 2022-12-03 16:55 ==
LOC: JER 02:59 → JERBED 06:50 → J4S 14:56
PROVIDERS: ADMIT Internal Medicine; ATTEND Internal Medicine
PROC: 3E033NZ Introduction of Analgesics, Hypnotics, Sedatives into Peripheral Vein, Percutaneous Approach (ICD-10-PCS; principal; 2022-12-01)
PROC: 3E0337Z Introduction of Electrolytic and Water Balance Substance into Peripheral Vein, Percutaneous Approach (ICD-10-PCS; 2022-12-01)
PROC: 3E033GC Introduction of Other Therapeutic Substance into Peripheral Vein, Percutaneous Approach (ICD-10-PCS; 2022-12-01)
PROC: 3E013GC Introduction of Other Therapeutic Substance into Subcutaneous Tissue, Percutaneous Approach (ICD-10-PCS; 2022-12-01)
DX: I95.1 Orthostatic hypotension (principal); E86.0 Dehydration; E16.2 Hypoglycemia, unspecified; G89.29 Other chronic pain; R51.9 Headache, unspecified; I48.0 Paroxysmal atrial fibrillation; I10 Essential (primary) hypertension; E27.1 Primary adrenocortical insufficiency; E22.2 Syndrome of inappropriate secretion of antidiuretic hormone; F41.9 Anxiety disorder, unspecified; M41.9 Scoliosis, unspecified; M81.0 Age-related osteoporosis without current pathological fracture; Z86.16 Personal history of COVID-19; Z88.8 Allergy status to other drugs, medicaments and biological substances; W18.39XA Other fall on same level, initial encounter; Y93.89 Activity, other specified; Y92.9 Unspecified place or not applicable
CPT/HCPCS: 0241U-QW; 36415; 70450-TC; 71046-TC-FY; 72125-TC; 80053; 81003; 83735; 84100; 84443; 84484; 85025; 93005; 93010; 93306-TC; 96372; 96374; 96375; 96376; 97116-GP; 97161-GP; 99285-25; G0378

== ENCOUNTER 2023-05-09 07:34 | Emergency (ER) | payer OTHER ==
[2023-05-09 07:43] VITALS: BMI 18.3
[2023-05-09] MEDS ORDERED: ONDANSETRON 4 MG/2 ML VIAL IVPUSH ONE ×2 (08:01→12:43)
[2023-05-09] MEDS ORDERED: ONDANSETRON 4 MG/2 ML VIAL ONE ×2 (08:20→13:48)
[2023-05-09 09:56] LABS: BASO % 0.4 % (0-2.0); EOS % 7.8 % (0-4.5); HEMATOCRIT 31.3 % (32.4-45.2); HEMOGLOBIN 11.2 GM/dL (10.7-15.3); LYMPH % 34.6 % (8-40); MCH 33.7 pg (25.7-33.7); MCHC 35.7 g/dl (32.0-36.0); MEAN CELL VOLUME 94.3 fl (80-96); MEAN PLT VOLUME 9.1 fl (7.5-11.1); MONO % 7.8 % (3.8-10.2); NEUT % 49.4 % (42.8-82.8); PLATELET COUNT 225 10^3/uL (134-434); RBC 3.32 M/mm3 (3.60-5.2); RDW 12.4 % (11.6-15.6)
[2023-05-09 10:29] LABS: POTASSIUM 4.1 mmol/L (3.5-5.1)
[2023-05-09 10:31] LABS: CALCIUM 8.6 mg/dL (8.5-10.1)
[2023-05-09 10:32] LABS: ALBUMIN 3.4 g/dl (3.4-5.0); BLOOD UREA NITROGEN 12.9 mg/dL (7-18)
[2023-05-09 10:34] LABS: CREATININE 0.6 mg/dL (0.55-1.3)
[2023-05-09 10:36] LABS: TOT PROT 6.1 g/dl (6.4-8.2)
[2023-05-09 10:37] LABS: BILIRUBIN,TOTAL 0.4 mg/dL (0.2-1)
[2023-05-09] MEDS ORDERED: LORazepam 0.5 MG TABLET PO ONE (10:55)
[2023-05-09] MEDS ORDERED: LORazepam 0.5 MG TABLET ONE (11:08)
[2023-05-09 12:34] LABS: EPI CELLS 10 /uL (0-25.1); HYALINE CASTS 0 /uL (0-3.1); PH,URINE 6.5 (5.0-8.0); URINE APPEARANCE CLEAR; URINE BACTERIA 26 /uL (0-1359); URINE BILIRUBIN NEGATIVE (NEGATIVE); URINE COLOR YELLOW; URINE GLUCOSE (UA) NEGATIVE (NEGATIVE); URINE KETONE NEGATIVE (NEGATIVE); URINE LEUK ESTERASE 2+ (NEGATIVE); URINE NITRITE NEGATIVE (NEGATIVE); URINE PROTEIN NEGATIVE (NEGATIVE); URINE RBC 27 /uL (0-23.9); URINE UROBILINOGEN 0.2 mg/dL (0.2-1.0); URINE WBC 32 /uL (0-25.8)
[2023-05-09 14:58] VITALS: BP 122/66; PULSE 82; RESP 19; TEMP 98
== END 2023-05-09 16:00 | disposition home or self-care (01) ==
LOC: JER 07:34
PROC: 3E033GC Introduction of Other Therapeutic Substance into Peripheral Vein, Percutaneous Approach (ICD-10-PCS; principal; 2023-05-09)
PROC: 3E033GC Introduction of Other Therapeutic Substance into Peripheral Vein, Percutaneous Approach (ICD-10-PCS; 2023-05-09)
DX: R05.9 Cough, unspecified (principal); R11.0 Nausea; R09.81 Nasal congestion; M79.10 Myalgia, unspecified site; R68.83 Chills (without fever); R07.0 Pain in throat; Z20.822 Contact with and (suspected) exposure to COVID-19
CPT/HCPCS: 0241U-QW; 36415; 71045-TC-FY; 80053; 81003; 83735; 84484; 85025; 87086; 93005; 93010

== ENCOUNTER 2023-08-20 17:28 | Emergency (ER) | payer OTHER ==
[2023-08-20 17:54] VITALS: BMI 20.9
[2023-08-20] MEDS ORDERED: ONDANSETRON 4 MG/2 ML VIAL IVPUSH ONE (18:27)
[2023-08-20] MEDS ORDERED: LACTATED RINGERS SOLUTION 1000 ML INFUS.BAG IV ONE (18:27)
[2023-08-20] MEDS ORDERED: ONDANSETRON 4 MG/2 ML VIAL ONE (19:48)
[2023-08-20 20:26] LABS: BASO % 0.9 % (0-2.0); EOS % 11.2 % (0-4.5); HEMATOCRIT 36.5 % (32.4-45.2); HEMOGLOBIN 12.7 GM/dL (10.7-15.3); LYMPH % 42.9 % (8-40); MCH 33.4 pg (25.7-33.7); MCHC 34.8 g/dl (32.0-36.0); MEAN CELL VOLUME 96.1 fl (80-96); MEAN PLT VOLUME 9.9 fl (7.5-11.1); MONO % 5.9 % (3.8-10.2); NEUT % 39.1 % (42.8-82.8); PLATELET COUNT 334 10^3/uL (134-434); RDW 12.6 % (11.6-15.6); WHITE BLOOD COUNT 6.7 K/mm3 (4.0-10.0)
[2023-08-20 20:29] LABS: EPI CELLS 2 /uL (0-25.1); HYALINE CASTS 0 /uL (0-3.1); PH,URINE 6.5 (5.0-8.0); URINE APPEARANCE CLEAR; URINE BACTERIA 27 /uL (0-1359); URINE BILIRUBIN NEGATIVE (NEGATIVE); URINE COLOR YELLOW; URINE GLUCOSE (UA) NEGATIVE (NEGATIVE); URINE KETONE NEGATIVE (NEGATIVE); URINE LEUK ESTERASE 2+ (NEGATIVE); URINE NITRITE NEGATIVE (NEGATIVE); URINE PROTEIN NEGATIVE (NEGATIVE); URINE RBC 15 /uL (0-23.9); URINE UROBILINOGEN 0.2 mg/dL (0.2-1.0); URINE WBC 25 /uL (0-25.8)
[2023-08-20] MEDS ORDERED: ACETAMINOPHEN 1000 MG/100 ML BAG IVPB ONE (20:31)
[2023-08-20 20:43] LABS: POTASSIUM 4.5 mmol/L (3.5-5.1)
[2023-08-20 20:45] LABS: CALCIUM 8.8 mg/dL (8.5-10.1)
[2023-08-20 20:46] LABS: ALBUMIN 3.8 g/dl (3.4-5.0); BLOOD UREA NITROGEN 7.1 mg/dL (7-18); MAGNESIUM 1.7 mg/dL (1.8-2.4)
[2023-08-20 20:49] LABS: CREATININE 0.7 mg/dL (0.55-1.3)
[2023-08-20 20:51] LABS: BILIRUBIN,TOTAL 0.7 mg/dL (0.2-1); TOT PROT 6.8 g/dl (6.4-8.2)
[2023-08-20 21:10] LABS: POTASSIUM 5.4 mmol/L (3.5-5.1)
[2023-08-20 21:12] LABS: CALCIUM 8.5 mg/dL (8.5-10.1)
[2023-08-20 21:13] LABS: ALBUMIN 3.7 g/dl (3.4-5.0); BLOOD UREA NITROGEN 7.2 mg/dL (7-18)
[2023-08-20 21:16] LABS: CREATININE 0.7 mg/dL (0.55-1.3)
[2023-08-20 21:17] LABS: TOT PROT 6.8 g/dl (6.4-8.2)
[2023-08-20 21:18] LABS: BILIRUBIN,TOTAL 0.6 mg/dL (0.2-1)
[2023-08-20] MEDS ORDERED: MAGNESIUM SULFATE IN WATER 2 GM/50 ML IVPB IVPB ONE (21:18)
[2023-08-20] MEDS ORDERED: ACETAMINOPHEN INJECTION 100 ML IVPB ONE (21:24)
[2023-08-20] MEDS ORDERED: MAGNESIUM 1GM/D5W - 1 GM/100 ML IVPB IVPB ONE ×2 (21:44→21:53)
[2023-08-21 01:13] VITALS: BP 135/63; PULSE 55; RESP 16; TEMP 97.9
== END 2023-08-21 02:40 | disposition home or self-care (01) ==
LOC: JER 17:28
PROC: 3E033GC Introduction of Other Therapeutic Substance into Peripheral Vein, Percutaneous Approach (ICD-10-PCS; principal; 2023-08-20)
PROC: 3E033GC Introduction of Other Therapeutic Substance into Peripheral Vein, Percutaneous Approach (ICD-10-PCS; 2023-08-20)
PROC: 3E033NZ Introduction of Analgesics, Hypnotics, Sedatives into Peripheral Vein, Percutaneous Approach (ICD-10-PCS; 2023-08-20)
DX: R19.7 Diarrhea, unspecified (principal); R11.0 Nausea; Z20.822 Contact with and (suspected) exposure to COVID-19
CPT/HCPCS: 0241U-QW; 36415; 74177-TC; 80053; 81003; 82024; 82533; 83735; 83930; 83935; 85025; 87086; 93005; 93010; 99285-25; Q9967

== ENCOUNTER 2023-08-31 04:47 | Inpatient (IN) | payer OTHER ==
[2023-08-31] MEDS ORDERED: MAG HYDROX/AL HYDROX/SIMETH -MYLANTA- ORAL SUSPENSION PO ONE (05:27)
[2023-08-31] MEDS ORDERED: ONDANSETRON 4 MG/2 ML VIAL IVPB ONE (05:27)
[2023-08-31] MEDS ORDERED: ACETAMINOPHEN 1000 MG/100 ML BAG IVPB ONE (05:27)
[2023-08-31] MEDS ORDERED: ONDANSETRON 4 MG/2 ML VIAL IVPUSH ONE (05:40)
[2023-08-31] MEDS ORDERED: FAMOTIDINE 20 MG/50 ML IVPB 20 MG/50 ML MG IVPB ONE ×2 (05:41→05:49)
[2023-08-31] MEDS ORDERED: MAG HYDROX/AL HYDROX/SIMETH 30 ML UNIT-DOSE CUP ONE (05:49)
[2023-08-31] MEDS ORDERED: ACETAMINOPHEN INJECTION 100 ML IVPB ONE (05:49)
[2023-08-31] MEDS ORDERED: ONDANSETRON 4 MG/2 ML VIAL ONE (06:27)
[2023-08-31 06:55] LABS: BASO % 0.9 % (0-2.0); HEMATOCRIT 38.1 % (32.4-45.2); HEMOGLOBIN 13.3 GM/dL (10.7-15.3); LYMPH % 46.2 % (8-40); MCH 33.5 pg (25.7-33.7); MEAN CELL VOLUME 95.6 fl (80-96); MEAN PLT VOLUME 9.1 fl (7.5-11.1); MONO % 8.3 % (3.8-10.2); NEUT % 32.6 % (42.8-82.8); PLATELET COUNT 278 10^3/uL (134-434); RBC 3.98 M/mm3 (3.60-5.2); RDW 12.5 % (11.6-15.6); WHITE BLOOD COUNT 5.5 K/mm3 (4.0-10.0)
[2023-08-31 07:06] LABS: CALCIUM 8.7 mg/dL (8.5-10.1)
[2023-08-31 07:07] LABS: BLOOD UREA NITROGEN 12.3 mg/dL (7-18)
[2023-08-31 07:11] LABS: CREATININE 0.7 mg/dL (0.55-1.3); TOT PROT 7.3 g/dl (6.4-8.2)
[2023-08-31 07:13] LABS: BILIRUBIN,TOTAL 0.7 mg/dL (0.2-1)
[2023-08-31] MEDS ORDERED: SODIUM CHLORIDE 1,000 ML IV STA (07:33)
[2023-08-31] MEDS ORDERED: morphine CARPU-JECT 2 MG/1 ML DISP.SYRIN IVPUSH ONE (09:02)
[2023-08-31] MEDS ORDERED: LACTATED RINGERS SOLUTION 1,000 ML/1,000 ML INFUS.BAG IV SCH (12:30)
[2023-08-31] MEDS ORDERED: METOCLOPRAMIDE HCL INJECTION 10 MG/2 ML VIAL IVPUSH PRN (12:30)
[2023-08-31] MEDS ORDERED: ACETAMINOPHEN 500 MG TABLET (FP) PO PRN (12:32)
[2023-08-31] MEDS: MAG HYDROX/AL HYDROX/SIMETH 30 ML UNIT-DOSE CUP PO PRN (12:47)
[2023-08-31 13:34] LABS: POTASSIUM 5.2 mmol/L (3.5-5.1)
[2023-08-31 13:36] LABS: CALCIUM 8.9 mg/dL (8.5-10.1)
[2023-08-31 13:40] LABS: CREATININE 0.8 mg/dL (0.55-1.3)
[2023-08-31] MEDS: LACTATED RINGERS SOLUTION 1,000 ML/1,000 ML INFUS.BAG IV SCH (16:01)
[2023-08-31] MEDS: ONDANSETRON 4 MG/2 ML VIAL IVPB PRN (16:39)
[2023-08-31 19:12] LABS: POTASSIUM 4.4 mmol/L (3.5-5.1)
[2023-08-31 19:13] LABS: CALCIUM 8.4 mg/dL (8.5-10.1)
[2023-08-31 19:14] LABS: BLOOD UREA NITROGEN 9.8 mg/dL (7-18)
[2023-08-31 19:17] LABS: CREATININE 0.7 mg/dL (0.55-1.3)
[2023-08-31] MEDS: HEPARIN NA (PORCINE) 5,000 UNITS/ML 1ML VIAL SQ SCH (21:19)
[2023-08-31 21:22] LABS: EPI CELLS 2 /uL (0-25.1); HYALINE CASTS 0 /uL (0-3.1); URINE APPEARANCE CLEAR; URINE BACTERIA 18 /uL (0-1359); URINE BILIRUBIN NEGATIVE (NEGATIVE); URINE COLOR YELLOW; URINE GLUCOSE (UA) NEGATIVE (NEGATIVE); URINE KETONE NEGATIVE (NEGATIVE); URINE LEUK ESTERASE TRACE (NEGATIVE); URINE NITRITE NEGATIVE (NEGATIVE); URINE PROTEIN NEGATIVE (NEGATIVE); URINE RBC 14 /uL (0-23.9); URINE UROBILINOGEN 0.2 mg/dL (0.2-1.0); URINE WBC 32 /uL (0-25.8)
[2023-08-31] MEDS ORDERED: UREA PO SCH (22:00)
[2023-09-01] MEDS: LACTATED RINGERS SOLUTION 1,000 ML/1,000 ML INFUS.BAG IV SCH ×3 (01:52→23:23)
[2023-09-01] MEDS: ONDANSETRON 4 MG/2 ML VIAL IVPB PRN ×3 (02:00→23:20)
[2023-09-01] MEDS: MAG HYDROX/AL HYDROX/SIMETH 30 ML UNIT-DOSE CUP PO PRN (03:09)
[2023-09-01] MEDS ORDERED: ACETAMINOPHEN 1000 MG/100 ML BAG IVPB ONE (03:50)
[2023-09-01] MEDS: POLYETHYLENE GLYCOL (HEALTHYLAX) 3350 17 GM PACKET PO SCH (03:58)
[2023-09-01 08:26] LABS: BASO % 0.7 % (0-2.0); EOS % 10.5 % (0-4.5); HEMATOCRIT 29.8 % (32.4-45.2); HEMOGLOBIN 10.4 GM/dL (10.7-15.3); LYMPH % 42.1 % (8-40); MCH 33.4 pg (25.7-33.7); MEAN CELL VOLUME 95.4 fl (80-96); MEAN PLT VOLUME 9.2 fl (7.5-11.1); MONO % 9.2 % (3.8-10.2); NEUT % 37.5 % (42.8-82.8); PLATELET COUNT 219 10^3/uL (134-434); RBC 3.12 M/mm3 (3.60-5.2); RDW 12.4 % (11.6-15.6); WHITE BLOOD COUNT 4.6 K/mm3 (4.0-10.0)
[2023-09-01 08:52] LABS: POTASSIUM 4.7 mmol/L (3.5-5.1)
[2023-09-01 08:53] LABS: CALCIUM 8.4 mg/dL (8.5-10.1)
[2023-09-01 08:54] LABS: BLOOD UREA NITROGEN 7.8 mg/dL (7-18)
[2023-09-01 08:57] LABS: CREATININE 0.7 mg/dL (0.55-1.3)
[2023-09-01] MEDS ORDERED: LORazepam 0.5 MG TABLET PO ONE (10:22)
[2023-09-01] MEDS: ACETAMINOPHEN 1000 MG/100 ML BAG IVPB PRN ×3 (10:39→23:20)
[2023-09-01] MEDS: FAMOTIDINE 20 MG TABLET PO SCH (10:39)
[2023-09-01] MEDS: HEPARIN NA (PORCINE) 5,000 UNITS/ML 1ML VIAL SQ SCH ×2 (10:39→21:54)
[2023-09-01] MEDS: SODIUM CHLORIDE 1 GM TABLET PO SCH ×2 (11:26→21:54)
[2023-09-02] MEDS: MAG HYDROX/AL HYDROX/SIMETH 30 ML UNIT-DOSE CUP PO PRN ×2 (02:02→09:48)
[2023-09-02] MEDS: POLYETHYLENE GLYCOL (HEALTHYLAX) 3350 17 GM PACKET PO SCH (05:21)
[2023-09-02] MEDS: ACETAMINOPHEN 1000 MG/100 ML BAG IVPB PRN (05:25)
[2023-09-02] MEDS: ONDANSETRON 4 MG/2 ML VIAL IVPB PRN ×2 (07:06→15:06)
[2023-09-02 08:56] LABS: POTASSIUM 4.3 mmol/L (3.5-5.1)
[2023-09-02 08:58] LABS: CALCIUM 8.1 mg/dL (8.5-10.1)
[2023-09-02 09:00] LABS: BLOOD UREA NITROGEN 4.1 mg/dL (7-18)
[2023-09-02 09:02] LABS: CREATININE 0.6 mg/dL (0.55-1.3)
[2023-09-02] MEDS: SODIUM CHLORIDE 1 GM TABLET PO SCH ×2 (09:40→22:14)
[2023-09-02] MEDS: FAMOTIDINE 20 MG TABLET PO SCH (09:40)
[2023-09-02] MEDS: HEPARIN NA (PORCINE) 5,000 UNITS/ML 1ML VIAL SQ SCH ×2 (09:41→22:14)
[2023-09-02] MEDS: ALPRAZolam 1 MG TABLET PO PRN (15:06)
[2023-09-02] MEDS: LACTATED RINGERS SOLUTION 1,000 ML/1,000 ML INFUS.BAG IV SCH (18:25)
[2023-09-02] MEDS ORDERED: ACETAMINOPHEN 1000 MG/100 ML BAG IVPB PRN (21:37)
[2023-09-03] MEDS: ONDANSETRON 4 MG/2 ML VIAL IVPB PRN ×2 (03:17→12:02)
[2023-09-03] MEDS: ALPRAZolam 1 MG TABLET PO PRN (04:53)
[2023-09-03 07:47] LABS: BASO % 0.7 % (0-2.0); EOS % 5.3 % (0-4.5); HEMATOCRIT 30.9 % (32.4-45.2); HEMOGLOBIN 11.1 GM/dL (10.7-15.3); LYMPH % 34.3 % (8-40); MCH 34.1 pg (25.7-33.7); MCHC 36.1 g/dl (32.0-36.0); MEAN CELL VOLUME 94.4 fl (80-96); MEAN PLT VOLUME 8.8 fl (7.5-11.1); MONO % 8.1 % (3.8-10.2); NEUT % 51.6 % (42.8-82.8); PLATELET COUNT 233 10^3/uL (134-434); RBC 3.27 M/mm3 (3.60-5.2); RDW 12.1 % (11.6-15.6); WHITE BLOOD COUNT 5.1 K/mm3 (4.0-10.0)
[2023-09-03 07:58] LABS: POTASSIUM 4.7 mmol/L (3.5-5.1)
[2023-09-03 08:07] LABS: BLOOD UREA NITROGEN 6.9 mg/dL (7-18)
[2023-09-03 08:08] LABS: ALBUMIN 3.5 g/dl (3.4-5.0); BILIRUBIN,TOTAL 0.5 mg/dL (0.2-1); TOT PROT 6.2 g/dl (6.4-8.2)
[2023-09-03 08:10] LABS: CALCIUM 8.5 mg/dL (8.5-10.1); CREATININE 0.7 mg/dL (0.55-1.3)
[2023-09-03] MEDS: HEPARIN NA (PORCINE) 5,000 UNITS/ML 1ML VIAL SQ SCH ×2 (10:46→22:21)
[2023-09-03] MEDS: FAMOTIDINE 20 MG TABLET PO SCH (10:46)
[2023-09-03] MEDS: SODIUM CHLORIDE 1 GM TABLET PO SCH ×2 (10:46→22:21)
[2023-09-03 16:40] VITALS: BMI 20.4
[2023-09-04] MEDS: ALPRAZolam 1 MG TABLET PO PRN ×2 (02:34→13:07)
[2023-09-04 09:18] LABS: BASO % 0.7 % (0-2.0); EOS % 6.1 % (0-4.5); HEMATOCRIT 34.4 % (32.4-45.2); HEMOGLOBIN 11.9 GM/dL (10.7-15.3); LYMPH % 37.7 % (8-40); MCH 33.3 pg (25.7-33.7); MCHC 34.7 g/dl (32.0-36.0); MEAN CELL VOLUME 95.9 fl (80-96); MEAN PLT VOLUME 9.3 fl (7.5-11.1); MONO % 9.9 % (3.8-10.2); NEUT % 45.6 % (42.8-82.8); PLATELET COUNT 233 10^3/uL (134-434); RBC 3.59 M/mm3 (3.60-5.2); RDW 12.7 % (11.6-15.6); WHITE BLOOD COUNT 4.9 K/mm3 (4.0-10.0)
[2023-09-04 09:29] LABS: POTASSIUM 4.4 mmol/L (3.5-5.1)
[2023-09-04] MEDS: FAMOTIDINE 20 MG TABLET PO SCH (09:34)
[2023-09-04] MEDS: HEPARIN NA (PORCINE) 5,000 UNITS/ML 1ML VIAL SQ SCH ×2 (09:34→21:37)
[2023-09-04] MEDS: SODIUM CHLORIDE 1 GM TABLET PO SCH ×3 (09:34→21:37)
[2023-09-04 09:39] LABS: BLOOD UREA NITROGEN 8.6 mg/dL (7-18); CALCIUM 8.6 mg/dL (8.5-10.1)
[2023-09-04 09:40] LABS: ALBUMIN 3.6 g/dl (3.4-5.0)
[2023-09-04 09:42] LABS: BILIRUBIN,TOTAL 0.5 mg/dL (0.2-1); CREATININE 0.8 mg/dL (0.55-1.3); TOT PROT 6.5 g/dl (6.4-8.2)
[2023-09-05] MEDS: MAG HYDROX/AL HYDROX/SIMETH 30 ML UNIT-DOSE CUP PO PRN (06:01)
[2023-09-05] MEDS: SODIUM CHLORIDE 1 GM TABLET PO SCH ×3 (06:01→23:09)
[2023-09-05] MEDS: ALPRAZolam 1 MG TABLET PO PRN (06:06)
[2023-09-05] MEDS: FAMOTIDINE 20 MG TABLET PO SCH (09:04)
[2023-09-05] MEDS: HEPARIN NA (PORCINE) 5,000 UNITS/ML 1ML VIAL SQ SCH ×2 (09:05→23:09)
[2023-09-05 09:31] LABS: BASO % 0.6 % (0-2.0); EOS % 4.5 % (0-4.5); HEMATOCRIT 32.7 % (32.4-45.2); HEMOGLOBIN 11.4 GM/dL (10.7-15.3); LYMPH % 32.6 % (8-40); MCH 33.3 pg (25.7-33.7); MCHC 34.7 g/dl (32.0-36.0); MEAN PLT VOLUME 9.5 fl (7.5-11.1); MONO % 7.8 % (3.8-10.2); NEUT % 54.5 % (42.8-82.8); PLATELET COUNT 232 10^3/uL (134-434); RBC 3.41 M/mm3 (3.60-5.2); RDW 12.3 % (11.6-15.6); WHITE BLOOD COUNT 6.4 K/mm3 (4.0-10.0)
[2023-09-05 09:48] LABS: POTASSIUM 4.5 mmol/L (3.5-5.1)
[2023-09-05 09:51] LABS: BLOOD UREA NITROGEN 9.2 mg/dL (7-18)
[2023-09-05 09:54] LABS: ALBUMIN 3.4 g/dl (3.4-5.0); CREATININE 0.9 mg/dL (0.55-1.3)
[2023-09-05 09:55] LABS: BILIRUBIN,TOTAL 0.3 mg/dL (0.2-1)
[2023-09-05 09:56] LABS: TOT PROT 6.2 g/dl (6.4-8.2)
[2023-09-06] MEDS: ALPRAZolam 1 MG TABLET PO PRN (03:00)
[2023-09-06] MEDS: SODIUM CHLORIDE 1 GM TABLET PO SCH ×3 (05:13→22:10)
[2023-09-06 09:34] LABS: BASO % 1.2 % (0-2.0); EOS % 6.8 % (0-4.5); HEMATOCRIT 34.3 % (32.4-45.2); HEMOGLOBIN 11.8 GM/dL (10.7-15.3); LYMPH % 42.6 % (8-40); MCH 33.8 pg (25.7-33.7); MCHC 34.6 g/dl (32.0-36.0); MEAN CELL VOLUME 97.8 fl (80-96); MEAN PLT VOLUME 9.4 fl (7.5-11.1); MONO % 8.9 % (3.8-10.2); NEUT % 40.5 % (42.8-82.8); PLATELET COUNT 225 10^3/uL (134-434); RDW 12.4 % (11.6-15.6); WHITE BLOOD COUNT 5.7 K/mm3 (4.0-10.0)
[2023-09-06 09:39] LABS: POTASSIUM 4.4 mmol/L (3.5-5.1)
[2023-09-06 09:41] LABS: CALCIUM 9.2 mg/dL (8.5-10.1)
[2023-09-06 09:42] LABS: ALBUMIN 3.4 g/dl (3.4-5.0); BLOOD UREA NITROGEN 9.6 mg/dL (7-18)
[2023-09-06 09:45] LABS: CREATININE 0.6 mg/dL (0.55-1.3)
[2023-09-06 09:46] LABS: BILIRUBIN,TOTAL 0.6 mg/dL (0.2-1); TOT PROT 6.3 g/dl (6.4-8.2)
[2023-09-06] MEDS: FAMOTIDINE 20 MG TABLET PO SCH (10:04)
[2023-09-06] MEDS: HEPARIN NA (PORCINE) 5,000 UNITS/ML 1ML VIAL SQ SCH ×2 (10:04→22:10)
[2023-09-07] MEDS: ALPRAZolam 1 MG TABLET PO PRN ×2 (02:21→12:51)
[2023-09-07] MEDS: SODIUM CHLORIDE 1 GM TABLET PO SCH ×3 (05:29→22:41)
[2023-09-07] MEDS: FAMOTIDINE 20 MG TABLET PO SCH (09:10)
[2023-09-07] MEDS: HEPARIN NA (PORCINE) 5,000 UNITS/ML 1ML VIAL SQ SCH (09:10)
[2023-09-07 10:54] LABS: ALBUMIN 3.6 g/dl (3.4-5.0); BILIRUBIN,TOTAL 0.4 mg/dL (0.2-1); BLOOD UREA NITROGEN 10.9 mg/dL (7-18); CALCIUM 9.5 mg/dL (8.5-10.1); CREATININE 0.7 mg/dL (0.55-1.3); POTASSIUM 4.5 mmol/L (3.5-5.1); TOT PROT 6.6 g/dl (6.4-8.2)
[2023-09-07] MEDS ORDERED: BISACODYL 10 MG SUPP.RECT PR ONE (12:45)
[2023-09-07] MEDS: POLYETHYLENE GLYCOL (HEALTHYLAX) 3350 17 GM PACKET PO SCH (12:49)
[2023-09-07] MEDS ORDERED: ALPRAZolam 0.25 MG TABLET PO PRN (23:14)
[2023-09-08] MEDS: SODIUM CHLORIDE 1 GM TABLET PO SCH ×2 (05:39→13:39)
[2023-09-08] MEDS: POLYETHYLENE GLYCOL (HEALTHYLAX) 3350 17 GM PACKET PO SCH (10:29)
[2023-09-08] MEDS: FAMOTIDINE 20 MG TABLET PO SCH (10:29)
[2023-09-08 12:51] VITALS: RESP 18
[2023-09-08 15:05] VITALS: BP 127/60; PULSE 59; TEMP 98.3
== END 2023-09-08 17:05 | disposition home or self-care (01) | DRG 645 ==
LOC: JER 04:47 → JERBED 11:27 → J7W 14:46 → OBSVTOIN 09-01 09:37 → J7W 09-03 10:27
PROVIDERS: ADMIT Internal Medicine; ATTEND Internal Medicine
DX: E22.2 Syndrome of inappropriate secretion of antidiuretic hormone (principal); I48.0 Paroxysmal atrial fibrillation; R11.0 Nausea; R07.89 Other chest pain; F41.0 Panic disorder [episodic paroxysmal anxiety]; I10 Essential (primary) hypertension; E78.5 Hyperlipidemia, unspecified; R26.81 Unsteadiness on feet; R19.7 Diarrhea, unspecified; M41.85 Other forms of scoliosis, thoracolumbar region; K76.0 Fatty (change of) liver, not elsewhere classified; K57.90 Diverticulosis of intestine, part unspecified, without perforation or abscess without bleeding
CPT/HCPCS: 0241U-QW; 36415; 71045-TC-FY; 74177-TC; 80048; 80053; 81003; 82962; 83690; 84300; 84484; 85025; 87086; 87186; 93005; 93010; 97116-GP; 97161-GP; 99285-25; G0378; J1644; Q9967

== ENCOUNTER 2023-09-16 16:19 | Inpatient (IN) | payer OTHER ==
[2023-09-16] MEDS ORDERED: ACETAMINOPHEN 1000 MG/100 ML BAG IVPB ONE (19:06)
[2023-09-16] MEDS ORDERED: SODIUM CHLORIDE 0.9% 500 ML INFUS.BAG IV ONE (19:07)
[2023-09-16] MEDS ORDERED: ACETAMINOPHEN INJECTION 100 ML IVPB ONE (20:51)
[2023-09-16 21:04] LABS: BASO % 0.7 % (0-2.0); EOS % 6.9 % (0-4.5); HEMATOCRIT 32.6 % (32.4-45.2); HEMOGLOBIN 11.5 GM/dL (10.7-15.3); LYMPH % 43.1 % (8-40); MCH 33.4 pg (25.7-33.7); MCHC 35.4 g/dl (32.0-36.0); MEAN CELL VOLUME 94.1 fl (80-96); MEAN PLT VOLUME 7.8 fl (7.5-11.1); NEUT % 40.3 % (42.8-82.8); PLATELET COUNT 312 10^3/uL (134-434); RBC 3.46 M/mm3 (3.60-5.2); RDW 12.2 % (11.6-15.6); WHITE BLOOD COUNT 6.1 K/mm3 (4.0-10.0)
[2023-09-16 21:26] LABS: CHLORIDE 85 mmol/L (98-107); POTASSIUM 4.7 mmol/L (3.5-5.1)
[2023-09-16 21:29] LABS: ALBUMIN 3.9 g/dl (3.4-5.0); BLOOD UREA NITROGEN 10.6 mg/dL (7-18); CALCIUM 8.9 mg/dL (8.5-10.1); CO2 23 mmol/L (21-32); GLUCOSE,RANDOM 85 mg/dL (74-106)
[2023-09-16 21:33] LABS: CREATININE 0.6 mg/dL (0.55-1.3); SGOT/AST 13 U/L (15-37); SGPT/ALT 9 U/L (13-61)
[2023-09-16 21:34] LABS: BILIRUBIN,TOTAL 0.8 mg/dL (0.2-1)
[2023-09-16 21:35] LABS: ALK PHOS 72 U/L (45-117); TOT PROT 6.7 g/dl (6.4-8.2)
[2023-09-16] MEDS ORDERED: ONDANSETRON 4 MG TABLET PO ONE (21:38)
[2023-09-16 21:52] LABS: ANION GAP 9 mmol/L (4-13); SODIUM 117 mmol/L (136-145)
[2023-09-16] MEDS ORDERED: ONDANSETRON *ODT* 4 MG TABLET ONE (22:03)
[2023-09-17] MEDS ORDERED: ACETAMINOPHEN 1000 MG/100 ML BAG IVPB PRN (03:07)
[2023-09-17 03:17] LABS: URINE APPEARANCE CLEAR; URINE BILIRUBIN NEGATIVE (NEGATIVE); URINE COLOR YELLOW; URINE GLUCOSE (UA) NEGATIVE (NEGATIVE); URINE KETONE TRACE (NEGATIVE); URINE LEUK ESTERASE NEGATIVE (NEGATIVE); URINE NITRITE NEGATIVE (NEGATIVE); URINE PROTEIN NEGATIVE (NEGATIVE); URINE UROBILINOGEN 0.2 mg/dL (0.2-1.0)
[2023-09-17] MEDS ORDERED: ONDANSETRON 4 MG/2 ML VIAL ONE ×2 (03:32→09:31)
[2023-09-17] MEDS ORDERED: SODIUM CHLORIDE 1,000 ML IV STA (03:32)
[2023-09-17] MEDS ORDERED: ACETAMINOPHEN INJECTION 100 ML IVPB ONE (03:32)
[2023-09-17] MEDS: ONDANSETRON 4 MG/2 ML VIAL IVPUSH PRN ×2 (03:43→09:44)
[2023-09-17] MEDS ORDERED: SODIUM CHLORIDE 1,000 ML IV SCH (04:45)
[2023-09-17 06:00] LABS: CHLORIDE 90 mmol/L (98-107); POTASSIUM 4.4 mmol/L (3.5-5.1)
[2023-09-17 06:03] LABS: BLOOD UREA NITROGEN 10.1 mg/dL (7-18); CALCIUM 8.1 mg/dL (8.5-10.1); CO2 19 mmol/L (21-32); GLUCOSE,RANDOM 66 mg/dL (74-106)
[2023-09-17 06:06] LABS: CREATININE 0.5 mg/dL (0.55-1.3)
[2023-09-17 06:09] LABS: ANION GAP 10 mmol/L (4-13); SODIUM 119 mmol/L (136-145)
[2023-09-17] MEDS: SODIUM CHLORIDE 1 GM TABLET PO SCH ×3 (06:48→23:22)
[2023-09-17 09:26] LABS: HEMATOCRIT 31.7 % (32.4-45.2); HEMOGLOBIN 11.2 GM/dL (10.7-15.3); MCH 33.5 pg (25.7-33.7); MCHC 35.3 g/dl (32.0-36.0); MEAN CELL VOLUME 94.9 fl (80-96); MEAN PLT VOLUME 8.6 fl (7.5-11.1); PLATELET COUNT 297 10^3/uL (134-434); RBC 3.34 M/mm3 (3.60-5.2); RDW 12.2 % (11.6-15.6); WHITE BLOOD COUNT 5.2 K/mm3 (4.0-10.0)
[2023-09-17] MEDS ORDERED: ENOXAPARIN NA (PORCINE) 40 MG/0.4 ML DISP.SYRIN SQ ONE (09:31)
[2023-09-17] MEDS: ENOXAPARIN NA (PORCINE) 40 MG/0.4 ML DISP.SYRIN SQ SCH (09:44)
[2023-09-17] MEDS ORDERED: LIDOCAINE 4% PATCH TP ONE (12:02)
[2023-09-17] MEDS: LIDOCAINE 4% PATCH TP SCH (12:04)
[2023-09-17 12:24] LABS: CHLORIDE 86 mmol/L (98-107); POTASSIUM 4.2 mmol/L (3.5-5.1)
[2023-09-17 12:29] LABS: ALBUMIN 3.7 g/dl (3.4-5.0); BLOOD UREA NITROGEN 8.3 mg/dL (7-18); CALCIUM 8.5 mg/dL (8.5-10.1); CO2 21 mmol/L (21-32); GLUCOSE,RANDOM 61 mg/dL (74-106); MAGNESIUM 1.7 mg/dL (1.8-2.4)
[2023-09-17 12:32] LABS: CREATININE 0.5 mg/dL (0.55-1.3); PHOSPHOROUS 2.7 mg/dL (2.5-4.9); SGOT/AST 9 U/L (15-37); SGPT/ALT 8 U/L (13-61)
[2023-09-17 12:33] LABS: BILIRUBIN,TOTAL 0.8 mg/dL (0.2-1); TOT PROT 6.4 g/dl (6.4-8.2)
[2023-09-17 12:35] LABS: ALK PHOS 72 U/L (45-117)
[2023-09-17 12:39] LABS: ANION GAP 12 mmol/L (4-13); SODIUM 119 mmol/L (136-145)
[2023-09-17] MEDS ORDERED: SODIUM CHLORIDE 1 GM TABLET PO ONE (16:46)
[2023-09-17] MEDS: LIDOCAINE PATCH REMOVAL MC SCH (22:34)
[2023-09-18] MEDS: SODIUM CHLORIDE 1 GM TABLET PO SCH ×3 (06:34→23:03)
[2023-09-18] MEDS ORDERED: INSULIN (LEVEMIR) 100 UNITS/ML UNITS SQ ONE (08:06)
[2023-09-18] MEDS: LIDOCAINE 4% PATCH TP SCH (10:03)
[2023-09-18] MEDS: ENOXAPARIN NA (PORCINE) 40 MG/0.4 ML DISP.SYRIN SQ SCH (10:03)
[2023-09-18 11:07] LABS: EOS % 4.3 % (0-4.5); HEMATOCRIT 33.8 % (32.4-45.2); LYMPH % 29.5 % (8-40); MCH 33.7 pg (25.7-33.7); MCHC 35.6 g/dl (32.0-36.0); MEAN CELL VOLUME 94.5 fl (80-96); MEAN PLT VOLUME 8.2 fl (7.5-11.1); MONO % 7.9 % (3.8-10.2); NEUT % 57.3 % (42.8-82.8); PLATELET COUNT 291 10^3/uL (134-434); RBC 3.57 M/mm3 (3.60-5.2); RDW 12.4 % (11.6-15.6); WHITE BLOOD COUNT 6.4 K/mm3 (4.0-10.0)
[2023-09-18 11:22] LABS: ALBUMIN 3.7 g/dl (3.4-5.0); BLOOD UREA NITROGEN 6.1 mg/dL (7-18)
[2023-09-18 11:27] LABS: BILIRUBIN,TOTAL 0.6 mg/dL (0.2-1); CREATININE 0.6 mg/dL (0.55-1.3); TOT PROT 6.4 g/dl (6.4-8.2)
[2023-09-18 14:03] LABS: POTASSIUM 4.1 mmol/L (3.5-5.1)
[2023-09-18 14:18] LABS: BLOOD UREA NITROGEN 5.2 mg/dL (7-18)
[2023-09-18 14:21] LABS: CREATININE 0.6 mg/dL (0.55-1.3)
[2023-09-18] MEDS: ONDANSETRON 4 MG/2 ML VIAL IVPUSH PRN (14:44)
[2023-09-18] MEDS: LIDOCAINE PATCH REMOVAL MC SCH (23:03)
[2023-09-19] MEDS: SODIUM CHLORIDE 1 GM TABLET PO SCH ×3 (06:26→21:29)
[2023-09-19 09:43] LABS: POTASSIUM 4.5 mmol/L (3.5-5.1)
[2023-09-19] MEDS: ENOXAPARIN NA (PORCINE) 40 MG/0.4 ML DISP.SYRIN SQ SCH (09:55)
[2023-09-19] MEDS: LIDOCAINE 4% PATCH TP SCH (09:56)
[2023-09-19 10:08] LABS: BLOOD UREA NITROGEN 6.3 mg/dL (7-18)
[2023-09-19 10:09] LABS: CALCIUM 9.1 mg/dL (8.5-10.1)
[2023-09-19 10:12] LABS: CREATININE 0.7 mg/dL (0.55-1.3)
[2023-09-19] MEDS: LIDOCAINE PATCH REMOVAL MC SCH (21:29)
[2023-09-20] MEDS: SODIUM CHLORIDE 1 GM TABLET PO SCH ×3 (05:17→22:03)
[2023-09-20] MEDS: ENOXAPARIN NA (PORCINE) 40 MG/0.4 ML DISP.SYRIN SQ SCH (09:30)
[2023-09-20] MEDS: LIDOCAINE 4% PATCH TP SCH (09:31)
[2023-09-20 11:13] LABS: POTASSIUM 4.6 mmol/L (3.5-5.1)
[2023-09-20 11:17] LABS: BLOOD UREA NITROGEN 6.9 mg/dL (7-18); CALCIUM 8.8 mg/dL (8.5-10.1)
[2023-09-20 11:20] LABS: CREATININE 0.7 mg/dL (0.55-1.3)
[2023-09-20] MEDS: LIDOCAINE PATCH REMOVAL MC SCH (21:42)
[2023-09-21] MEDS: SODIUM CHLORIDE 1 GM TABLET PO SCH ×3 (05:50→21:46)
[2023-09-21] MEDS: ENOXAPARIN NA (PORCINE) 40 MG/0.4 ML DISP.SYRIN SQ SCH (09:08)
[2023-09-21] MEDS: LIDOCAINE 4% PATCH TP SCH (09:09)
[2023-09-21] MEDS: ONDANSETRON 4 MG/2 ML VIAL IVPUSH PRN (09:14)
[2023-09-21 10:27] LABS: POTASSIUM 4.7 mmol/L (3.5-5.1)
[2023-09-21 10:30] LABS: BLOOD UREA NITROGEN 8.2 mg/dL (7-18); CALCIUM 9.3 mg/dL (8.5-10.1)
[2023-09-21 10:34] LABS: CREATININE 0.7 mg/dL (0.55-1.3)
[2023-09-21] MEDS: LIDOCAINE PATCH REMOVAL MC SCH (21:45)
[2023-09-22] MEDS: ONDANSETRON 4 MG/2 ML VIAL IVPUSH PRN (03:41)
[2023-09-22] MEDS: SODIUM CHLORIDE 1 GM TABLET PO SCH ×3 (07:21→23:19)
[2023-09-22] MEDS ORDERED: ALPRAZolam 0.25 MG TABLET PO PRN (09:40)
[2023-09-22 09:59] LABS: POTASSIUM 4.4 mmol/L (3.5-5.1)
[2023-09-22] MEDS: LIDOCAINE 4% PATCH TP SCH (10:05)
[2023-09-22] MEDS: ENOXAPARIN NA (PORCINE) 40 MG/0.4 ML DISP.SYRIN SQ SCH (10:06)
[2023-09-22 10:07] LABS: BLOOD UREA NITROGEN 10.3 mg/dL (7-18)
[2023-09-22 10:08] LABS: CALCIUM 9.4 mg/dL (8.5-10.1)
[2023-09-22 10:10] LABS: CREATININE 0.7 mg/dL (0.55-1.3)
[2023-09-22] MEDS ORDERED: ACETAMINOPHEN 325 MG TABLET (FP) PO PRN (12:53)
[2023-09-22] MEDS: POLYETHYLENE GLYCOL (HEALTHYLAX) 3350 17 GM PACKET PO SCH ×2 (15:03→23:17)
[2023-09-22 22:23] VITALS: RESP 20
[2023-09-22] MEDS: ACETAMINOPHEN 1000 MG/100 ML BAG IVPB PRN (23:17)
[2023-09-22] MEDS: LIDOCAINE PATCH REMOVAL MC SCH (23:18)
[2023-09-22] MEDS: HYDROCORTISONE 5 MG TABLET PO SCH ×2 (23:19→23:28)
[2023-09-23] MEDS: POLYETHYLENE GLYCOL (HEALTHYLAX) 3350 17 GM PACKET PO SCH ×2 (05:16→13:28)
[2023-09-23] MEDS: ACETAMINOPHEN 1000 MG/100 ML BAG IVPB PRN (06:55)
[2023-09-23] MEDS: SODIUM CHLORIDE 1 GM TABLET PO SCH ×2 (06:55→13:28)
[2023-09-23] MEDS: LIDOCAINE 4% PATCH TP SCH (10:29)
[2023-09-23] MEDS: HYDROCORTISONE 5 MG TABLET PO SCH ×2 (10:30→15:03)
[2023-09-23] MEDS: ENOXAPARIN NA (PORCINE) 40 MG/0.4 ML DISP.SYRIN SQ SCH (10:30)
[2023-09-23] MEDS: ONDANSETRON 4 MG/2 ML VIAL IVPUSH PRN (10:41)
[2023-09-23 14:46] VITALS: BP 149/56; PULSE 61; TEMP 97.5
== END 2023-09-23 16:03 | disposition home or self-care (01) | DRG 644 ==
LOC: JER 16:19 → JERBED 09-17 00:47 → J6S 09-18 00:35 → OBSVTOIN 09-18 13:31 → J7W 09-18 16:18
PROVIDERS: ADMIT Internal Medicine; ATTEND Internal Medicine
DX: E22.2 Syndrome of inappropriate secretion of antidiuretic hormone (principal); E27.40 Unspecified adrenocortical insufficiency; K56.7 Ileus, unspecified; I10 Essential (primary) hypertension; E86.0 Dehydration; K59.03 Drug induced constipation; R11.10 Vomiting, unspecified; I48.0 Paroxysmal atrial fibrillation; F41.9 Anxiety disorder, unspecified; H53.8 Other visual disturbances
CPT/HCPCS: 0241U-QW; 36415; 71045-TC-FY; 74177-TC; 80048; 80053; 81003; 82436; 82533; 82570; 82962; 83605; 83690; 83735; 83935; 84100; 84300; 84439; 84443; 84484; 85025; 85027; 87086; 87635; 93005; 93010; 97116-GP; 97161-GP; 99285-25; G0378

== ENCOUNTER 2024-09-21 03:43 | Emergency (ER) | payer OTHER ==
[2024-09-21 03:48] VITALS: BMI 19.5
[2024-09-21 05:20] LABS: POTASSIUM 4.4 mmol/L (3.5-5.1)
[2024-09-21 05:22] LABS: ALBUMIN 3.8 g/dl (3.4-5.0); BLOOD UREA NITROGEN 14.4 mg/dL (7-18); MAGNESIUM 1.9 mg/dL (1.8-2.4)
[2024-09-21 05:24] LABS: CREATININE 0.8 mg/dL (0.55-1.3)
[2024-09-21 05:26] LABS: BILIRUBIN,TOTAL 0.8 mg/dL (0.2-1); PHOSPHOROUS 2.3 mg/dL (2.5-4.9); TOT PROT 6.7 g/dl (6.4-8.2)
[2024-09-21] MEDS: SODIUM CHLORIDE 0.9% 500 ML INFUS.BAG IV ONE (06:00)
[2024-09-21] MEDS ORDERED: ACETAMINOPHEN INJECTION 100 ML ONE (06:01)
[2024-09-21] MEDS ORDERED: ONDANSETRON 4 MG/2 ML VIAL ONE (06:02)
[2024-09-21] MEDS ORDERED: FAMOTIDINE 20 MG/50 ML IVPB 20 MG/50 ML MG IVPB ONE (06:02)
[2024-09-21 06:07] LABS: BASO % 1.3 % (0-2.0); EOS % 0.9 % (0-4.5); HEMATOCRIT 33.6 % (32.4-45.2); HEMOGLOBIN 11.5 GM/dL (10.7-15.3); LYMPH % 40.5 % (8-40); MCH 33.7 pg (25.7-33.7); MCHC 34.3 g/dl (32.0-36.0); MEAN CELL VOLUME 98.2 fl (80-96); MEAN PLT VOLUME 9.5 fl (7.5-11.1); MONO % 7.2 % (3.8-10.2); NEUT % 50.1 % (42.8-82.8); PLATELET COUNT 251 10^3/uL (134-434); RBC 3.42 M/mm3 (3.60-5.2); RDW 12.3 % (11.6-15.6); WHITE BLOOD COUNT 5.2 K/mm3 (4.0-10.0)
[2024-09-21] MEDS: ACETAMINOPHEN 1000 MG/100 ML BAG IVPB ONE (06:10)
[2024-09-21] MEDS: FAMOTIDINE 20 MG/50 ML IVPB 20 MG/50 ML MG IVPB ONE (06:11)
[2024-09-21] MEDS: ONDANSETRON 4 MG/2 ML VIAL IVPUSH ONE (06:11)
[2024-09-21] MEDS ORDERED: NAPH,MB-DB/K PH,MBDB POWDER PACKET ONE (08:27)
[2024-09-21] MEDS: NAPH,MB-DB/K PH,MBDB POWDER PACKET PO ONE (08:37)
[2024-09-21 11:52] LABS: EPI CELLS 4 /uL (0-25.1); HYALINE CASTS 0 /uL (0-3.1); PH,URINE 5.5 (5.0-8.0); URINE APPEARANCE CLEAR; URINE BACTERIA 3928 /uL (0-1359); URINE BILIRUBIN NEGATIVE (NEGATIVE); URINE COLOR YELLOW; URINE GLUCOSE (UA) NEGATIVE (NEGATIVE); URINE KETONE TRACE (NEGATIVE); URINE LEUK ESTERASE TRACE (NEGATIVE); URINE NITRITE NEGATIVE (NEGATIVE); URINE PROTEIN NEGATIVE (NEGATIVE); URINE RBC 36 /uL (0-23.9); URINE UROBILINOGEN 0.2 mg/dL (0.2-1.0); URINE WBC 42 /uL (0-25.8)
[2024-09-21 13:32] VITALS: BP 132/79; PULSE 80; RESP 19; TEMP 98
== END 2024-09-21 13:45 | disposition home or self-care (01) ==
LOC: JER 03:43
PROC: 3E033GC Introduction of Other Therapeutic Substance into Peripheral Vein, Percutaneous Approach (ICD-10-PCS; principal; 2024-09-21)
PROC: 3E033NZ Introduction of Analgesics, Hypnotics, Sedatives into Peripheral Vein, Percutaneous Approach (ICD-10-PCS; 2024-09-21)
PROC: 3E033GC Introduction of Other Therapeutic Substance into Peripheral Vein, Percutaneous Approach (ICD-10-PCS; 2024-09-21)
DX: R10.32 Left lower quadrant pain (principal); R11.2 Nausea with vomiting, unspecified; R19.7 Diarrhea, unspecified
CPT/HCPCS: 36415; 74177-TC; 80053; 81003; 83605; 83690; 83735; 84100; 85025; 86850; 86900; 86901; 87086; 87186; 93005; 93010; 99285-25; J0131; Q9967

== ENCOUNTER 2024-12-16 05:09 | Inpatient (IN) | payer OTHER ==
[2024-12-16] MEDS ORDERED: ACETAMINOPHEN INJECTION 100 ML ONE (06:34)
[2024-12-16] MEDS ORDERED: ONDANSETRON 4 MG/2 ML VIAL ONE (06:34)
[2024-12-16 06:46] LABS: ABSOLUTE IMMATURE GRANULOCYTES 0.01 x10^3/uL (0.0-0.031); BASOPHILS # 0.03 x10^3/uL (0.01-0.08); EOSINOPHIL % 1.5 % (0.7-5.8); EOSINOPHILS # 0.07 x10^3/uL (0.04-0.36); HEMATOCRIT 30.5 % (34.1-44.9); HEMOGLOBIN 11.2 g/dL (11.2-15.7); MCHC 36.7 g/dl (32.2-35.5); MEAN PLT VOLUME 10.5 fl (9.4-12.3); MONOCYTE # 0.48 x10^3/uL (0.24-0.86); PLATELET COUNT 255 x10^3/uL (182-369)
[2024-12-16] MEDS: SODIUM CHLORIDE 1,000 ML IV STA (06:46)
[2024-12-16] MEDS: ONDANSETRON 4 MG/2 ML VIAL IVPUSH ONE ×2 (06:46→12:22)
[2024-12-16] MEDS: LACTATED RINGERS SOLUTION 1000 ML INFUS.BAG IV ONE (06:46)
[2024-12-16] MEDS: ACETAMINOPHEN 1000 MG/100 ML BAG IVPB ONE (06:46)
[2024-12-16] MEDS ORDERED: FAMOTIDINE 20 MG/50 ML IVPB 20 MG/50 ML MG IVPB ONE (06:54)
[2024-12-16] MEDS: FAMOTIDINE 20 MG/50 ML IVPB 20 MG/50 ML MG IVPB ONE (07:03)
[2024-12-16 07:07] LABS: CHLORIDE 87 mmol/L (98-107); POTASSIUM 4.3 mmol/L (3.5-5.1)
[2024-12-16 07:09] LABS: CALCIUM 8.5 mg/dL (8.5-10.1)
[2024-12-16 07:10] LABS: ALBUMIN 3.9 g/dl (3.4-5.0); BLOOD UREA NITROGEN 8.5 mg/dL (7-18); CO2 23 mmol/L (21-32); GLUCOSE,RANDOM 80 mg/dL (74-106); MAGNESIUM 1.7 mg/dL (1.8-2.4)
[2024-12-16 07:13] LABS: ANION GAP 8 mmol/L (4-13); CREATININE 0.7 mg/dL (0.55-1.3); SGOT/AST 12 U/L (15-37); SGPT/ALT 10 U/L (13-61); SODIUM 119 mmol/L (136-145)
[2024-12-16 07:14] LABS: BILIRUBIN,TOTAL 0.8 mg/dL (0.2-1)
[2024-12-16 07:15] LABS: TOT PROT 6.5 g/dl (6.4-8.2)
[2024-12-16 07:16] LABS: ALK PHOS 68 U/L (45-117)
[2024-12-16 09:00] LABS: CHLORIDE 85 mmol/L (98-107); POTASSIUM 4.6 mmol/L (3.5-5.1)
[2024-12-16 09:01] LABS: ANION GAP 8 mmol/L (4-13); BLOOD UREA NITROGEN 7.9 mg/dL (7-18); CALCIUM 8.6 mg/dL (8.5-10.1); CO2 23 mmol/L (21-32); GLUCOSE,RANDOM 79 mg/dL (74-106); SODIUM 116 mmol/L (136-145)
[2024-12-16 09:05] LABS: CREATININE 0.6 mg/dL (0.55-1.3)
[2024-12-16 09:09] LABS: URINE APPEARANCE CLEAR; URINE COLOR YELLOW
[2024-12-16 09:10] LABS: URINE BILIRUBIN NEGATIVE (NEGATIVE); URINE GLUCOSE (UA) NEGATIVE (NEGATIVE); URINE KETONE NEGATIVE (NEGATIVE)
[2024-12-16 09:11] LABS: PH,URINE 7.5 (5.0-8.0); URINE LEUK ESTERASE NEGATIVE (NEGATIVE); URINE NITRITE NEGATIVE (NEGATIVE); URINE PROTEIN NEGATIVE (NEGATIVE); URINE UROBILINOGEN 0.2 mg/dL (0.2-1.0)
[2024-12-16] MEDS ORDERED: MORPHINE SULFATE 2 MG/ML SYRINGE ONE (09:57)
[2024-12-16] MEDS: morphine CARPU-JECT 2 MG/1 ML DISP.SYRIN IVPUSH ONE (10:08)
[2024-12-16] MEDS ORDERED: SODIUM CHLORIDE 3% 500 ML/100 ML INFUS.BAG IV ONE (10:15)
[2024-12-16] MEDS: INFUS IV ONE (10:31)
[2024-12-16] MEDS: SODIUM CHLORIDE 3% IV ONE (10:31)
[2024-12-16] MEDS ORDERED: MAGNESIUM SULFATE IN WATER 2 GM/50 ML IVPB IVPB ONE (11:05)
[2024-12-16] MEDS ORDERED: ENOXAPARIN NA (PORCINE) 40 MG/0.4 ML DISP.SYRIN SQ ONE (11:05)
[2024-12-16] MEDS: SODIUM CHLORIDE 3% 500 ML/500 ML INFUS.BAG IV ONE (11:13)
[2024-12-16] MEDS: ENOXAPARIN NA (PORCINE) 40 MG/0.4 ML DISP.SYRIN SQ SCH (11:13)
[2024-12-16] MEDS: MAGNESIUM SULF 50% (8.12 MEQ/2 ML-1 GM VIAL) IVPB ONE (11:13)
[2024-12-16 14:31] LABS: CHLORIDE 84 mmol/L (98-107)
[2024-12-16 14:33] LABS: CALCIUM 8.7 mg/dL (8.5-10.1)
[2024-12-16 14:34] LABS: ANION GAP 10 mmol/L (4-13); BLOOD UREA NITROGEN 6.7 mg/dL (7-18); CO2 24 mmol/L (21-32); GLUCOSE,RANDOM 76 mg/dL (74-106); SODIUM 117 mmol/L (136-145)
[2024-12-16 14:37] LABS: CREATININE 0.7 mg/dL (0.55-1.3)
[2024-12-16] MEDS: TRIMETHOBENZAMIDE HCL 200MG/2ML INJ IM ONE (16:54)
[2024-12-16 19:46] LABS: CHLORIDE 84 mmol/L (98-107); POTASSIUM 4.7 mmol/L (3.5-5.1)
[2024-12-16 19:47] LABS: CALCIUM 8.7 mg/dL (8.5-10.1)
[2024-12-16 19:48] LABS: ANION GAP 11 mmol/L (4-13); BLOOD UREA NITROGEN 8.5 mg/dL (7-18); CO2 21 mmol/L (21-32); GLUCOSE,RANDOM 82 mg/dL (74-106); SODIUM 116 mmol/L (136-145)
[2024-12-16] MEDS: ACETAMINOPHEN 1000 MG/100 ML BAG IVPB STA (19:48)
[2024-12-16] MEDS: ONDANSETRON 4 MG/2 ML VIAL IVPUSH STA (19:49)
[2024-12-16] MEDS: SODIUM CHLORIDE 1,000 ML IV SCH (19:50)
[2024-12-16 19:51] LABS: CREATININE 0.7 mg/dL (0.55-1.3)
[2024-12-16] MEDS: CHLORHEXIDINE GLUCONATE 4% CLEANSER FOR DECOLONIZATION TP SCH (22:03)
[2024-12-16] MEDS: MUPIROCIN 2% TOPICAL OINTMENT FOR DECOLONIZATION NS SCH (22:03)
[2024-12-16] MEDS: TRIMETHOBENZAMIDE HCL 200MG/2ML INJ IM STA (22:03)
[2024-12-16 22:13] LABS: CHLORIDE 84 mmol/L (98-107); POTASSIUM 3.9 mmol/L (3.5-5.1)
[2024-12-16 22:14] LABS: CALCIUM 8.3 mg/dL (8.5-10.1)
[2024-12-16 22:15] LABS: BLOOD UREA NITROGEN 9.2 mg/dL (7-18); CO2 21 mmol/L (21-32); GLUCOSE,RANDOM 74 mg/dL (74-106)
[2024-12-16 22:18] LABS: ANION GAP 12 mmol/L (4-13); CREATININE 0.6 mg/dL (0.55-1.3); SODIUM 117 mmol/L (136-145)
[2024-12-17] MEDS: ONDANSETRON 4 MG/2 ML VIAL IVPUSH STA (06:40)
[2024-12-17 07:02] LABS: CHLORIDE 84 mmol/L (98-107); POTASSIUM 4.9 mmol/L (3.5-5.1)
[2024-12-17 07:07] LABS: CALCIUM 8.7 mg/dL (8.5-10.1)
[2024-12-17 07:08] LABS: ALBUMIN 4.1 g/dl (3.4-5.0); BLOOD UREA NITROGEN 11.2 mg/dL (7-18); CO2 21 mmol/L (21-32); GLUCOSE,RANDOM 60 mg/dL (74-106); MAGNESIUM 1.9 mg/dL (1.8-2.4)
[2024-12-17 07:11] LABS: CREATININE 0.6 mg/dL (0.55-1.3); PHOSPHOROUS 3.2 mg/dL (2.5-4.9); SGOT/AST 62 U/L (15-37); SGPT/ALT 15 U/L (13-61)
[2024-12-17 07:13] LABS: BILIRUBIN,TOTAL 1.3 mg/dL (0.2-1); TOT PROT 6.6 g/dl (6.4-8.2)
[2024-12-17 07:14] LABS: ALK PHOS 78 U/L (45-117); ANION GAP 12 mmol/L (4-13); SODIUM 116 mmol/L (136-145)
[2024-12-17 07:22] LABS: MCHC 37.5 g/dl (32.2-35.5); MEAN CELL VOLUME 89.4 fl (79.4-94.8); MEAN PLT VOLUME 11.4 fl (9.4-12.3); PLATELET COUNT 292 x10^3/uL (182-369); RDW 11.1 % (12.4-16.6)
[2024-12-17] MEDS: FAMOTIDINE 10 MG TABLET PO SCH (09:03)
[2024-12-17] MEDS: ONDANSETRON 4 MG/2 ML VIAL IVPUSH PRN (09:04)
[2024-12-17] MEDS: LORazepam 2 MG/ML SDV VIAL IVPUSH PRN (10:33)
[2024-12-17] MEDS: SODIUM CHLORIDE 3% 500 ML/500 ML INFUS.BAG IVPB SCH (10:46)
[2024-12-17] MEDS: FAMOTIDINE 20 MG/50 ML IVPB 20 MG/50 ML MG IVPB SCH (10:46)
[2024-12-17] MEDS: KETOROLAC TROMETHAMINE 30 MG/1 ML VIAL IVPUSH SCH (15:06)
[2024-12-17] MEDS: LIDOCAINE 4% PATCH TP SCH (15:06)
[2024-12-17 17:17] LABS: CHLORIDE 85 mmol/L (98-107); POTASSIUM 4.7 mmol/L (3.5-5.1); SODIUM 118 mmol/L (136-145)
[2024-12-17 17:20] LABS: ANION GAP 16 mmol/L (4-13); CALCIUM 8.6 mg/dL (8.5-10.1); CO2 17 mmol/L (21-32); GLUCOSE,RANDOM 64 mg/dL (74-106)
[2024-12-17 17:30] LABS: CREATININE 0.6 mg/dL (0.55-1.3)
[2024-12-17] MEDS: SODIUM CHLORIDE 3% 500 ML/500 ML INFUS.BAG IV ONE (17:58)
[2024-12-17] MEDS: LIDOCAINE PATCH REMOVAL MC SCH (21:16)
[2024-12-18 00:03] LABS: CHLORIDE 85 mmol/L (98-107); POTASSIUM 4.6 mmol/L (3.5-5.1)
[2024-12-18 00:04] LABS: CALCIUM 8.2 mg/dL (8.5-10.1)
[2024-12-18 00:05] LABS: BLOOD UREA NITROGEN 11.5 mg/dL (7-18); CO2 14 mmol/L (21-32); GLUCOSE,RANDOM 141 mg/dL (74-106)
[2024-12-18 00:08] LABS: CREATININE 0.8 mg/dL (0.55-1.3)
[2024-12-18 00:10] LABS: ANION GAP 18 mmol/L (4-13); SODIUM 117 mmol/L (136-145)
[2024-12-18] MEDS: SODIUM CHLORIDE 3% 500 ML/500 ML INFUS.BAG IV ONE ×3 (00:24→23:24)
[2024-12-18 04:41] LABS: HEMATOCRIT 30.7 % (34.1-44.9); HEMOGLOBIN 11.6 g/dL (11.2-15.7); MCHC 37.8 g/dl (32.2-35.5); MEAN PLT VOLUME 10.5 fl (9.4-12.3); PLATELET COUNT 284 x10^3/uL (182-369); RDW 10.7 % (12.4-16.6)
[2024-12-18 04:56] LABS: CHLORIDE 85 mmol/L (98-107); POTASSIUM 4.5 mmol/L (3.5-5.1)
[2024-12-18 04:58] LABS: ALBUMIN 3.8 g/dl (3.4-5.0); BLOOD UREA NITROGEN 8.2 mg/dL (7-18); CALCIUM 8.3 mg/dL (8.5-10.1); CO2 18 mmol/L (21-32); GLUCOSE,RANDOM 81 mg/dL (74-106); MAGNESIUM 1.5 mg/dL (1.8-2.4)
[2024-12-18 05:01] LABS: CREATININE 0.6 mg/dL (0.55-1.3); PHOSPHOROUS 1.9 mg/dL (2.5-4.9); SGOT/AST 67 U/L (15-37); SGPT/ALT 19 U/L (13-61)
[2024-12-18 05:03] LABS: BILIRUBIN,TOTAL 1.5 mg/dL (0.2-1); TOT PROT 6.6 g/dl (6.4-8.2)
[2024-12-18 05:04] LABS: ALK PHOS 79 U/L (45-117)
[2024-12-18 05:14] LABS: ANION GAP 15 mmol/L (4-13); SODIUM 118 mmol/L (136-145)
[2024-12-18] MEDS: MAGNESIUM SULFATE IN WATER 2 GM/50 ML IVPB IVPB ONE (10:15)
[2024-12-18 10:50] LABS: CHLORIDE 88 mmol/L (98-107); POTASSIUM 4.2 mmol/L (3.5-5.1); SODIUM 119 mmol/L (136-145)
[2024-12-18 10:51] LABS: CALCIUM 8.2 mg/dL (8.5-10.1)
[2024-12-18 10:52] LABS: ANION GAP 15 mmol/L (4-13); BLOOD UREA NITROGEN 7.3 mg/dL (7-18); CO2 17 mmol/L (21-32); GLUCOSE,RANDOM 80 mg/dL (74-106)
[2024-12-18 10:55] LABS: CREATININE 0.5 mg/dL (0.55-1.3)
[2024-12-18] MEDS ORDERED: KETOROLAC TROMETHAMINE 30 MG/1 ML VIAL IVPUSH PRN (11:33)
[2024-12-18 14:16] VITALS: BMI 18.9
[2024-12-18] MEDS: LABETALOL HCL 20 MG/4 ML VIAL IVPUSH PRN (15:00)
[2024-12-18 15:49] LABS: CALCIUM 8.1 mg/dL (8.5-10.1)
[2024-12-18 15:50] LABS: BLOOD UREA NITROGEN 6.7 mg/dL (7-18)
[2024-12-18 15:53] LABS: CREATININE 0.5 mg/dL (0.55-1.3)
[2024-12-18] MEDS ORDERED: AMIODARONE IN DEXTROSE,ISO-OSM 150 MG/100 ML BAG ONE (17:33)
[2024-12-18] MEDS ORDERED: SODIUM CHLORIDE 3% 500 ML/500 ML INFUS.BAG IV ONE (17:46)
[2024-12-18 19:19] LABS: CHLORIDE 90 mmol/L (98-107); POTASSIUM 3.7 mmol/L (3.5-5.1)
[2024-12-18 19:20] LABS: SODIUM 119 mmol/L (136-145)
[2024-12-18 19:22] LABS: ALBUMIN 3.3 g/dl (3.4-5.0); ANION GAP 10 mmol/L (4-13); BLOOD UREA NITROGEN 5.4 mg/dL (7-18); CALCIUM 7.8 mg/dL (8.5-10.1); CO2 20 mmol/L (21-32); GLUCOSE,RANDOM 101 mg/dL (74-106)
[2024-12-18 19:25] LABS: SGOT/AST 58 U/L (15-37); SGPT/ALT 19 U/L (13-61)
[2024-12-18 19:26] LABS: CREATININE 0.5 mg/dL (0.55-1.3)
[2024-12-18 19:27] LABS: BILIRUBIN,TOTAL 1.2 mg/dL (0.2-1); TOT PROT 5.6 g/dl (6.4-8.2)
[2024-12-18 19:28] LABS: ALK PHOS 64 U/L (45-117)
[2024-12-18 22:26] LABS: BLOOD UREA NITROGEN 5.3 mg/dL (7-18); CALCIUM 7.8 mg/dL (8.5-10.1); POTASSIUM 3.8 mmol/L (3.5-5.1)
[2024-12-18 22:28] LABS: CREATININE 0.6 mg/dL (0.55-1.3)
[2024-12-19 06:47] LABS: HEMATOCRIT 27.2 % (34.1-44.9); HEMOGLOBIN 10.2 g/dL (11.2-15.7); MCHC 37.5 g/dl (32.2-35.5); MEAN CELL VOLUME 89.5 fl (79.4-94.8); MEAN PLT VOLUME 10.8 fl (9.4-12.3); PLATELET COUNT 252 x10^3/uL (182-369); RDW 11.3 % (12.4-16.6)
[2024-12-19 06:58] LABS: POTASSIUM 4.4 mmol/L (3.5-5.1)
[2024-12-19 07:09] LABS: ALBUMIN 3.5 g/dl (3.4-5.0); BLOOD UREA NITROGEN 4.6 mg/dL (7-18); MAGNESIUM 2.3 mg/dL (1.8-2.4)
[2024-12-19 07:12] LABS: CREATININE 0.5 mg/dL (0.55-1.3)
[2024-12-19 07:13] LABS: BILIRUBIN,TOTAL 1.3 mg/dL (0.2-1); PHOSPHOROUS 1.8 mg/dL (2.5-4.9)
[2024-12-19 07:14] LABS: TOT PROT 5.9 g/dl (6.4-8.2)
[2024-12-19] MEDS ORDERED: LIDOCAINE PATCH REMOVAL MC SCH ×2 (09:06→22:00)
[2024-12-19] MEDS: POTASSIUM PHOSPHATE 15 MM in SODIUM CHLORIDE 100 ML IVPB ONE (09:33)
[2024-12-19 11:25] LABS: EPI CELLS 4 /uL (0-25.1); HYALINE CASTS 0 /uL (0-3.1); URINE APPEARANCE CLEAR; URINE BACTERIA 4343 /uL (0-1359); URINE BILIRUBIN NEGATIVE (NEGATIVE); URINE COLOR YELLOW; URINE GLUCOSE (UA) NEGATIVE (NEGATIVE); URINE KETONE 1+ (NEGATIVE); URINE LEUK ESTERASE 1+ (NEGATIVE); URINE NITRITE NEGATIVE (NEGATIVE); URINE PROTEIN TRACE (NEGATIVE); URINE RBC 54 /uL (0-23.9); URINE UROBILINOGEN 0.2 mg/dL (0.2-1.0); URINE WBC 14 /uL (0-25.8)
[2024-12-19 12:03] LABS: BLOOD UREA NITROGEN 3.3 mg/dL (7-18); CALCIUM 7.9 mg/dL (8.5-10.1); POTASSIUM 3.9 mmol/L (3.5-5.1)
[2024-12-19 12:32] LABS: CREATININE 0.5 mg/dL (0.55-1.3)
[2024-12-19] MEDS: SODIUM CHLORIDE 1 GM TABLET PO SCH (13:33)
[2024-12-19] MEDS: POLYETHYLENE GLYCOL (HEALTHYLAX) 3350 17 GM PACKET PO ONE (13:33)
[2024-12-19] MEDS: POLYETHYLENE GLYCOL (HEALTHYLAX) 3350 17 GM PACKET PO SCH (13:35)
[2024-12-19] MEDS: ONDANSETRON 4 MG/2 ML VIAL IVPUSH PRN (16:45)
[2024-12-19] MEDS: oxyCODONE HCL 5 MG TABLET PO PRN (17:27)
[2024-12-19] MEDS: NAPH,MB-DB/K PH,MBDB POWDER PACKET PO ONE (19:39)
[2024-12-19] MEDS: LIDOCAINE PATCH REMOVAL MC SCH (21:24)
[2024-12-19] MEDS: FAMOTIDINE 20 MG/50 ML IVPB 20 MG/50 ML MG IVPB SCH (21:24)
[2024-12-19] MEDS: SENNOSIDES 8.8 MG/5 ML SYRUP PO SCH (21:25)
[2024-12-19] MEDS ORDERED: CHLORHEXIDINE GLUCONATE 4% CLEANSER FOR DECOLONIZATION TP SCH (22:00)
[2024-12-19] MEDS ORDERED: POLYETHYLENE GLYCOL (HEALTHYLAX) 3350 17 GM PACKET PO SCH (22:00)
[2024-12-20] MEDS: hydrOXYzine PAMOATE 25 MG CAPSULE (FP) PO ONE (02:49)
[2024-12-20 08:44] LABS: HEMATOCRIT 25.7 % (34.1-44.9); HEMOGLOBIN 9.6 g/dL (11.2-15.7); MCHC 37.4 g/dl (32.2-35.5); MEAN CELL VOLUME 90.8 fl (79.4-94.8); MEAN PLT VOLUME 11.1 fl (9.4-12.3); PLATELET COUNT 236 x10^3/uL (182-369); RDW 11.7 % (12.4-16.6)
[2024-12-20] MEDS: LIDOCAINE 4% PATCH TP SCH (09:08)
[2024-12-20] MEDS: ENOXAPARIN NA (PORCINE) 40 MG/0.4 ML DISP.SYRIN SQ SCH (09:09)
[2024-12-20 09:12] LABS: POTASSIUM 4.3 mmol/L (3.5-5.1)
[2024-12-20 09:15] LABS: ALBUMIN 3.1 g/dl (3.4-5.0); BLOOD UREA NITROGEN 3.1 mg/dL (7-18); MAGNESIUM 1.9 mg/dL (1.8-2.4)
[2024-12-20 09:18] LABS: CREATININE 0.6 mg/dL (0.55-1.3); PHOSPHOROUS 2.4 mg/dL (2.5-4.9)
[2024-12-20 09:20] LABS: BILIRUBIN,TOTAL 0.8 mg/dL (0.2-1); TOT PROT 5.3 g/dl (6.4-8.2)
[2024-12-20] MEDS: ACETAMINOPHEN 1000 MG/100 ML BAG IVPB PRN (16:10)
[2024-12-21 09:02] LABS: ABSOLUTE IMMATURE GRANULOCYTES 0.01 x10^3/uL (0.0-0.031); BASOPHILS # 0.03 x10^3/uL (0.01-0.08); EOSINOPHIL % 1.7 % (0.7-5.8); EOSINOPHILS # 0.08 x10^3/uL (0.04-0.36); HEMATOCRIT 26.9 % (34.1-44.9); HEMOGLOBIN 9.5 g/dL (11.2-15.7); MCHC 35.3 g/dl (32.2-35.5); MEAN CELL VOLUME 94.1 fl (79.4-94.8); MEAN PLT VOLUME 10.6 fl (9.4-12.3); MONOCYTE # 0.58 x10^3/uL (0.24-0.86); MONOCYTE % 12.1 % (4.7-12.5); PLATELET COUNT 237 x10^3/uL (182-369); RDW 11.9 % (12.4-16.6)
[2024-12-21 09:22] LABS: POTASSIUM 4.7 mmol/L (3.5-5.1)
[2024-12-21 09:24] LABS: CALCIUM 8.2 mg/dL (8.5-10.1)
[2024-12-21 09:25] LABS: BLOOD UREA NITROGEN 3.8 mg/dL (7-18)
[2024-12-21 09:28] LABS: CREATININE 0.7 mg/dL (0.55-1.3)
[2024-12-21] MEDS: PANTOPRAZOLE 20 MG TABLET PO SCH (09:32)
[2024-12-21] MEDS: LORazepam 1 MG TABLET PO PRN (09:40)
[2024-12-21 22:22] VITALS: RESP 18
[2024-12-22 05:57] VITALS: TEMP 98.1
[2024-12-22 09:30] VITALS: BP 120/43; PULSE 70
== END 2024-12-22 10:15 | disposition home or self-care (01) | DRG 644 ==
LOC: JER 05:09 → JERBED 09:41 → JICU 12:13 → J5S 12-19 15:30
PROVIDERS: ADMIT Internal Medicine Pulmonary Disease; ATTEND Internal Medicine
DX: E22.2 Syndrome of inappropriate secretion of antidiuretic hormone (principal); E44.0 Moderate protein-calorie malnutrition; Z68.1 Body mass index [BMI] 19.9 or less, adult; K52.9 Noninfective gastroenteritis and colitis, unspecified; E80.6 Other disorders of bilirubin metabolism; G89.29 Other chronic pain; R07.81 Pleurodynia; F41.9 Anxiety disorder, unspecified; K59.00 Constipation, unspecified
CPT/HCPCS: 0241U-QW; 36415; 74018-TC-FY; 74177-TC; 76705-TC; 80048; 80053; 81003; 82533; 82550; 82553; 82570; 82962; 83605; 83690; 83735; 83930; 83935; 84100; 84300; 85025; 85027; 87045; 87046; 87086; 87186; 87205; 87209; 93005; 93010; 97116-GP; 97161-GP; 99285-25; J0131; Q9967